=== PATIENT | female | born 1970 | race Caucasian/White ===

== ENCOUNTER → 2016-07-19 | Outpatient (REF) | payer OTHER ==
[2016-07-19 12:15] LABS: ALBUMIN 3.4 GM/DL (3.2-5.2); ALBUMIN/GLOBULIN RATIO 1.36 (1.00-1.93); ALKALINE PHOSPHATASE 66 U/L (45-117); ALT/SGPT 21 U/L (12-78); ANION GAP 9 MEQ/L (8-16); AST/SGOT 11 U/L (15-37); BILIRUBIN,TOTAL 0.2 MG/DL (0.2-1.0); BLOOD UREA NITROGEN 17 MG/DL (7-18); CARBON DIOXIDE LEVEL 24 MEQ/L (21-32); CHLORIDE LEVEL 112 MEQ/L (98-107); CHOLESTEROL LEVEL 182 MG/DL (<200); CREATININE FOR GFR 0.73 MG/DL (0.55-1.02); FREE T4 0.97 NG/DL (0.76-1.46); GLOMERULAR FILTRATION RATE > 60.0 (>58); GLUCOSE, FASTING 101 MG/DL (70-105); POTASSIUM SERUM 3.6 MEQ/L (3.5-5.1); SODIUM LEVEL 145 MEQ/L (136-145); TOTAL PROTEIN 5.9 GM/DL (6.4-8.2); TRIGLYCERIDES LEVEL 74 MG/DL (<150)
== END ==
LOC: M SFHCPLAZ 08:05
PROVIDERS: ATTEND Nurse Practitioner Family
DX: I10 Essential (primary) hypertension (principal); E03.9 Hypothyroidism, unspecified; E11.9 Type 2 diabetes mellitus without complications; E78.2 Mixed hyperlipidemia; E55.9 Vitamin D deficiency, unspecified

== ENCOUNTER → 2016-10-15 | Outpatient (REF) | payer OTHER ==
[2016-10-15 11:51] LABS: ALBUMIN 3.4 GM/DL (3.2-5.2); ALBUMIN/GLOBULIN RATIO 1.26 (1.00-1.93); ALKALINE PHOSPHATASE 70 U/L (45-117); ALT/SGPT 54 U/L (12-78); ANION GAP 7 MEQ/L (8-16); AST/SGOT 34 U/L (15-37); BILIRUBIN,TOTAL 0.4 MG/DL (0.2-1.0); BLOOD UREA NITROGEN 17 MG/DL (7-18); CALCIUM LEVEL 8.4 MG/DL (8.5-10.1); CARBON DIOXIDE LEVEL 24 MEQ/L (21-32); CHLORIDE LEVEL 111 MEQ/L (98-107); CREATININE FOR GFR 0.72 MG/DL (0.55-1.02); FREE T4 0.98 NG/DL (0.76-1.46); GLOMERULAR FILTRATION RATE > 60.0 (>58); GLUCOSE, FASTING 93 MG/DL (70-105); SODIUM LEVEL 142 MEQ/L (136-145); TOTAL PROTEIN 6.1 GM/DL (6.4-8.2)
== END ==
LOC: M SFHCPLAZ 09:24
PROVIDERS: ATTEND Nurse Practitioner Family
DX: E11.9 Type 2 diabetes mellitus without complications (principal); E03.9 Hypothyroidism, unspecified; E55.9 Vitamin D deficiency, unspecified

== ENCOUNTER → 2016-11-20 | Outpatient (CLI) | payer OTHER ==
--- NOTE | 2016-11-20 11:36 | REPMRS ---
Patient History The patient states she had a clinical breast exam in 11/13 Patient is nulliparous. Family history of prostate cancer in maternal uncle at age 50 or over. Digital Woman Screen Mammo: November 20, 2016 - Exam #: [id number] Bilateral MLO, CC, and XCCL view(s) were taken. Technologist: Radha Richard, Technologist Prior study comparison: July 19, 2015, digital woman screen mammo performed at [facility]. February 07, 2014, digital woman screen mammo performed at [facility]. September 19, 2011, digital woman screen mammo performed at [facility]. FINDINGS: The breast tissue is almost entirely fat. There has been no change in the appearance of the mammogram from the prior studies. There is no interval development of dominant mass, architectural distortion, or clustered microcalcification typical of malignancy. ASSESSMENT: BI-RADS/ACR category 1 mammogram. Negative. Recommendation Routine screening mammogram of both breasts in 1 year (for women over age 40). This mammogram was interpreted with the aid of an FDA-approved computer-aided dectection system. Electronically Signed By: Josue Todd MD 11/20/16 [id number]
== END ==
LOC: M WHC 10:09
PROVIDERS: ATTEND Nurse Practitioner Family
DX: Z12.31 Encounter for screening mammogram for malignant neoplasm of breast (principal); E65 Localized adiposity

== ENCOUNTER → 2018-05-18 | Outpatient (REF) | payer OTHER ==
[2018-05-18 12:57] LABS: MALB URINE SIEMENS 64.3 MG/L; MAU/CREAT RATIO 32.4 MCG/MG (0.0-30.0)
[2018-05-18 12:59] LABS: ALBUMIN 3.6 GM/DL (3.2-5.2); ALBUMIN/GLOBULIN RATIO 1.29 (1.00-1.93); ALKALINE PHOSPHATASE 72 U/L (45-117); ALT/SGPT 22 U/L (12-78); ANION GAP 8 MEQ/L (8-16); AST/SGOT 10 U/L (7-37); BILIRUBIN,TOTAL 0.4 MG/DL (0.2-1.0); BLOOD UREA NITROGEN 14 MG/DL (7-18); CALCIUM LEVEL 8.7 MG/DL (8.5-10.1); CARBON DIOXIDE LEVEL 23 MEQ/L (21-32); CHLORIDE LEVEL 112 MEQ/L (98-107); CREATININE FOR GFR 0.75 MG/DL (0.55-1.30); FREE T4 0.99 NG/DL (0.76-1.46); GLOMERULAR FILTRATION RATE > 60.0 (>58); GLUCOSE, FASTING 102 MG/DL (70-100); POTASSIUM SERUM 4.1 MEQ/L (3.5-5.1); SODIUM LEVEL 143 MEQ/L (136-145); TOTAL 25(OH) VITAMIN D 49.6 NG/ML (30.0-100.0); TOTAL PROTEIN 6.4 GM/DL (6.4-8.2)
[2018-05-18 14:00] LABS: ESTIMATED AVERAGE GLUCOSE 114 MG/DL (60-110); HEMOGLOBIN A1c 5.6 %
== END ==
LOC: M SFHCPLAZ 09:23
DX: I10 Essential (primary) hypertension (principal); E03.9 Hypothyroidism, unspecified; E11.9 Type 2 diabetes mellitus without complications; E55.9 Vitamin D deficiency, unspecified
CPT/HCPCS: 84443

== ENCOUNTER → 2019-04-19 | Outpatient (REF) | payer OTHER ==
[2019-04-19 12:41] LABS: ALBUMIN 3.5 GM/DL (3.2-5.2); ALT/SGPT 19 U/L (12-78); BILIRUBIN,TOTAL 0.3 MG/DL (0.2-1.0); BLOOD UREA NITROGEN 16 MG/DL (7-18); CALCIUM LEVEL 8.5 MG/DL (8.5-10.1); CARBON DIOXIDE LEVEL 24 MEQ/L (21-32); CHLORIDE LEVEL 113 MEQ/L (98-107); CHOLESTEROL LEVEL 176 MG/DL (<200); CHOLESTEROL RISK RATIO 2.378 (<5); CREATININE FOR GFR 0.74 MG/DL (0.55-1.30); FREE T4 1.01 NG/DL (0.76-1.46); GLOMERULAR FILTRATION RATE > 60.0 (>58); GLUCOSE, FASTING 102 MG/DL (70-100); HDL CHOLESTEROL 74 MG/DL (>40); LDL CHOLESTEROL 93 MG/DL (<100); NON-HDL-C 102 MG/DL; POTASSIUM SERUM 3.9 MEQ/L (3.5-5.1); SODIUM LEVEL 143 MEQ/L (136-145); TOTAL 25(OH) VITAMIN D 39.6 NG/ML (30.0-100.0); TOTAL PROTEIN 6.3 GM/DL (6.4-8.2); TRIGLYCERIDES LEVEL 43 MG/DL (<150)
[2019-04-19 12:51] LABS: MAU/CREAT RATIO 192.5 MCG/MG (0.0-30.0)
[2019-04-19 12:54] LABS: HEMOGLOBIN A1c 5.1 %
== END ==
LOC: M SFHCPLAZ 09:24
PROVIDERS: ATTEND Nurse Practitioner Family
DX: I10 Essential (primary) hypertension (principal); E03.9 Hypothyroidism, unspecified; E11.9 Type 2 diabetes mellitus without complications; E78.2 Mixed hyperlipidemia; E55.9 Vitamin D deficiency, unspecified

== ENCOUNTER → 2019-10-07 | Outpatient (REF) | payer OTHER ==
[2019-10-07 18:28] LABS: ALBUMIN 3.6 GM/DL (3.2-5.2); ALT/SGPT 21 U/L (12-78); BILIRUBIN,TOTAL 0.3 MG/DL (0.2-1.0); BLOOD UREA NITROGEN 17 MG/DL (7-18); CALCIUM LEVEL 8.8 MG/DL (8.5-10.1); CARBON DIOXIDE LEVEL 23 MEQ/L (21-32); CHLORIDE LEVEL 112 MEQ/L (98-107); CREATININE FOR GFR 0.69 MG/DL (0.55-1.30); FREE T4 0.89 NG/DL (0.76-1.46); GLOMERULAR FILTRATION RATE > 60.0 (>58); GLUCOSE, FASTING 93 MG/DL (70-100); SODIUM LEVEL 142 MEQ/L (136-145); TOTAL PROTEIN 6.5 GM/DL (6.4-8.2)
[2019-10-07 18:29] LABS: HEMOGLOBIN A1c 5.7 %
[2019-10-07 18:50] LABS: CREATININE, URINE 70.9 MG/DL; MALB URINE SIEMENS 44.9 MG/L; MAU/CREAT RATIO 63.3 MCG/MG (0.0-30.0)
== END ==
LOC: M SFHCPLAZ 15:06
PROVIDERS: ATTEND Nurse Practitioner Family
DX: I10 Essential (primary) hypertension (principal); E03.9 Hypothyroidism, unspecified; E11.9 Type 2 diabetes mellitus without complications; R80.9 Proteinuria, unspecified

== ENCOUNTER → 2020-04-27 | Outpatient (REF) | payer OTHER ==
[2020-04-27 13:40] LABS: HEMOGLOBIN A1c 5.6 %
[2020-04-27 14:02] LABS: ALBUMIN 3.5 GM/DL (3.2-5.2); ALT/SGPT 20 U/L (12-78); BILIRUBIN,TOTAL 0.6 MG/DL (0.2-1.0); BLOOD UREA NITROGEN 18 MG/DL (7-18); CALCIUM LEVEL 8.9 MG/DL (8.5-10.1); CARBON DIOXIDE LEVEL 26 MEQ/L (21-32); CHLORIDE LEVEL 110 MEQ/L (98-107); CHOLESTEROL LEVEL 170 MG/DL (<200); CHOLESTEROL RISK RATIO 2.394 (<5); CREATININE FOR GFR 0.77 MG/DL (0.55-1.30); FREE T4 1.01 NG/DL (0.76-1.46); GLOMERULAR FILTRATION RATE > 60.0 (>51); GLUCOSE, FASTING 111 MG/DL (70-100); HDL CHOLESTEROL 71 MG/DL (>40); LDL CHOLESTEROL 88 MG/DL (<100); NON-HDL-C 99 MG/DL; POTASSIUM SERUM 3.9 MEQ/L (3.5-5.1); SODIUM LEVEL 142 MEQ/L (136-145); TOTAL 25(OH) VITAMIN D 50.4 NG/ML (30.0-100.0); TOTAL PROTEIN 6.3 GM/DL (6.4-8.2); TRIGLYCERIDES LEVEL 53 MG/DL (<150)
== END ==
LOC: M SFHCPLAZ 09:15
PROVIDERS: ATTEND Nurse Practitioner Family
DX: I10 Essential (primary) hypertension (principal); E03.9 Hypothyroidism, unspecified; E11.9 Type 2 diabetes mellitus without complications; E78.2 Mixed hyperlipidemia; E55.9 Vitamin D deficiency, unspecified; R80.9 Proteinuria, unspecified

== ENCOUNTER 2020-09-02 16:40 | Inpatient (IN) | payer OTHER ==
[~2020-09-02] VITALS: Ht 152.4 cm; Wt 180.2 kg
[2020-09-02] MEDS ORDERED: METF500T13 PO (17:19)
[2020-09-02] MEDS ORDERED: LEVO25TA5 PO (17:19)
[2020-09-02] MEDS ORDERED: LABE20TAB PO (17:19)
[2020-09-02] MEDS ORDERED: BUPR150T5 PO (17:19)
[2020-09-02] MEDS ORDERED: CALC-364 PO (17:19)
[2020-09-02] MEDS ORDERED: ACET500C10 PO (17:19)
[2020-09-02] MEDS ORDERED: PRAV40TA2 PO (17:19)
[2020-09-02] MEDS ORDERED: VITA50005 PO (17:19)
[2020-09-02] MEDS ORDERED: LATANOPROST (17:19)
[2020-09-02] MEDS ORDERED: LISI10TA22 PO (17:19)
[2020-09-02] MEDS ORDERED: AMLO1TAB25 PO (17:19)
[2020-09-02 17:25] LABS: BASO % 0.5 % (0.0-1.0); EOS # 0.1 10^3/uL (0.0-0.5); EOS % 1.1 % (0.0-3.0); HEMATOCRIT 40.7 % (36.0-47.0); HEMOGLOBIN 11.5 g/dl (12.0-15.5); LYMPH # 0.6 10^3/uL (1.5-5.0); LYMPH % 8.8 % (24.0-44.0); MEAN CORPUSCULAR HEMOGLOBIN 26.7 pg (27.0-33.0); MEAN CORPUSCULAR HGB CONC 28.3 g/dl (32.0-36.5); MEAN CORPUSCULAR VOLUME 94.4 fl (80.0-96.0); MONO # 0.7 10^3/uL (0.0-0.8); MONO % 10.1 % (2.0-8.0); NEUTROPHILS # 5.1 10^3/uL (1.5-8.5); RED BLOOD COUNT 4.31 10^6/uL (4.00-5.40); WHITE BLOOD COUNT 6.5 10^3/uL (4.0-10.0)
--- NOTE | 2020-09-02 17:28 | REP ---
INDICATION: SOB COMPARISON: 11/27/2005 TECHNIQUE: Portable AP view of the chest FINDINGS: Cardiomegaly is appreciated along with cephalization, increased interstitial markings, and subtle basilar opacities most compatible with CHF/pulmonary edema. Layering effusions cannot definitively be excluded. No pneumothorax. Skeletal structures intact. IMPRESSION: Cardiomegaly and findings to suggest CHF/pulmonary edema. <Electronically signed by Duong Redman > 09/02/20 [id number]
[2020-09-02 17:40] LABS: PLATELET COUNT, AUTOMATED 166 10^3/uL (150-450)
[2020-09-02 17:54] LABS: ALT/SGPT 38 U/L (12-78); BLOOD UREA NITROGEN 18 MG/DL (7-18); CALCIUM LEVEL 8.5 MG/DL (8.5-10.1); CARBON DIOXIDE LEVEL 28 MEQ/L (21-32); CHLORIDE LEVEL 111 MEQ/L (98-107); CREATININE FOR GFR 0.84 MG/DL (0.55-1.30); GLOMERULAR FILTRATION RATE > 60.0 (>51); GLUCOSE, FASTING 92 MG/DL (70-100); POTASSIUM SERUM 4.1 MEQ/L (3.5-5.1); SODIUM LEVEL 143 MEQ/L (136-145)
[2020-09-02 17:55] LABS: ALBUMIN 3.3 GM/DL (3.2-5.2); BILIRUBIN,DIRECT 0.2 MG/DL (0.0-0.2); BILIRUBIN,TOTAL 0.4 MG/DL (0.2-1.0); CK-MB VALUE MASS 3.2 NG/ML (<3.6); CPK CREATINE PHOSPHOKINASE 124 U/L (26-192); FREE T4 1.03 NG/DL (0.76-1.46); MB/CK RELATIVE INDEX 2.58 (< OR =4); NT-PRO BNP 627 PG/ML (<125); TOTAL PROTEIN 5.7 GM/DL (6.4-8.2); TROPONIN I < 0.02 NG/ML (< 0.10)
[2020-09-02] MEDS ORDERED: FUROSEMIDE 40MG/4ML VIAL (J1940) IV ONE (18:05)
--- NOTE | 2020-09-02 18:11 | REPVR ---
PROCEDURE INFORMATION: Exam: US Duplex Lower Extremity Veins, Bilateral Exam date and time: 09/02/2020 5:50 PM Age: 50 years old Clinical indication: Swelling (edema) of limb; Lower extremity, bilateral; Additional info: Edema R/O dvt TECHNIQUE: Imaging protocol: Real-time duplex ultrasound of the extremities with 2-D acosta scale, color Doppler flow and spectral waveform analysis with image documentation. Complete exam focused on the bilateral lower extremity veins. COMPARISON: No relevant prior studies available. FINDINGS: Right deep veins: Unremarkable. The common femoral, femoral and popliteal veins are patent without thrombus. Normal Doppler waveforms. Normal compressibility and/or augmentation response. Right superficial veins: Saphenofemoral junction is patent without thrombus. Left deep veins: Unremarkable. The common femoral, femoral and popliteal veins are patent without thrombus. Normal Doppler waveforms. Normal compressibility and/or augmentation response. Left superficial veins: Saphenofemoral junction is patent without thrombus. Soft tissues: Unremarkable. IMPRESSION: No sonographic evidence of deep vein thrombosis. Electronically signed by: Kenny Sanderson On 09/02/2020 18:12:14 PM
[2020-09-02] MEDS ORDERED: XALA0.007 OU (18:21)
[2020-09-02] MEDS ORDERED: DEXTROSE 50% 50 ML SYRINGE IV PRN (19:25)
[2020-09-02] MEDS ORDERED: GLUCOSE 4GM CHEW TABLET PO PRN (19:25)
[2020-09-02] MEDS ORDERED: GLUCAGON INJ 1MG VIAL SC PRN (19:25)
[2020-09-02] MEDS: HumaLOG INSULIN (NovoLOG) PER UNIT SC SCH (21:00)
[2020-09-02] MEDS: LATANOPROST 0.005% OPHTH SOLN 2.5 ML OU SCH (21:00)
[2020-09-02] MEDS: buPROPion **SR TABLET** (ZYBAN) 150MG PO SCH (21:00)
[2020-09-02] MEDS: acetaZOLAMIDE 500 MG ER CAP PO SCH (21:00)
--- NOTE | 2020-09-02 21:06 | HPEPDOC ---
[facility] Medical History & Physical Date of Admission Sep 02, 2020 Date of Service: Sep 02, 2020 History and Physical CHIEF COMPLAINT: Shortness of breath for 2 months, leg swelling, abdominal distention, a 40 pound weight gain HISTORY OF PRESENT ILLNESS: 50-year-old morbidly obese female BMI of 74.1, obstructive sleep apnea compliance with her CPAP, hypertension, diabetes, diastolic congestive heart failure, ejection fraction of 60%, microalbuminemia presents to the emergency room with 2 month history of increasing shortness of breath initially with exertion, but eventually at rest with paroxysmal nocturnal dyspnea and 3 pillow orthopnea at home. She has noted increasing lower extremity edema, abdominal distention and a 40 pound weight gain without changes in appetite. Patient admits to dietary indiscretion and not following a salt restricted diet or fluid restriction. . She denies any chest pain, pressure, tightness, palpitations, diaphoresis, nausea, vomiting, epigastric discomfort, dizziness or lightheadedness. She's had increasing difficulty ambulating due to shortness of breath , especially going one flight of stairs at home. She's had no prior history of DVT or PE in the past. She's had a dry persistent cough and wheezing without fever,chills, or headache, that is not alleviated with her CPAP and has had occasional loose stools once a week for the past 2 months but denies any bright red blood per rectum, melena, black tarry stools, coffee-ground emesis or hematemesis. No prior history of peptic ulcer disease, esophagitis or gastritis. Patient denies taking any medications or inhalers for shortness of breath and has not sought any medical attention prior to coming to the emergency room [place]. In the emergency room patient was found to be hypoxic, 70-80% oxygen saturation on room air, hypertensive with systolic pressure 196 mmHg, 3+ lower extremity edema with Rales bilaterally and chest x-ray showing pulmonary edema, negative venous Dopplers of bilateral lower extremities for DVT. EKG showed sinus rhythm, ventricular rate of 64 with first-degree AV block and troponins are negative. Hemoglobin is 11.5. Hospitalist was asked to admit for the patient for acute hypoxic respiratory failure requiring supplemental oxygen secondary to acute on chronic diastolic congestive heart failure. PAST MEDICAL HISTORY: HTN, DM2, DM retinopathy, microalbuminemia, Dyslipidemia, Obesity BMI 74, Depression, papilledema, vitamin D deficiency, Diastolic CHF , ejection fraction of 60%, obstructive sleep apnea, compliant with CPAP PAST SURGICAL HISTORY: None SOCIAL HISTORY: Denies cigarette use or alcohol use. 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 Healthcare proxy is sister's Binta Gonzalez . CODE STATUS is FULL code. . Denies recreational drug use. Single, no children. FAMILY HISTORY: Father age 45. CAD, [place] Mother alive, hypertension, obesity, gout, diabetes Brother with hypertension 2 sisters with diabetes Maternal uncle prostate cancer and skin cancer Maternal aunt with CVA Maternal aunt, diabetes, CAD, at the age of 65 ALLERGIES: Please see below. REVIEW OF SYSTEMS 10 point review of system is negative aside from positive findings in history of present illness HOME MEDICATIONS: Please see below. PHYSICAL EXAMINATION: VITAL SIGNS: See below GENERAL APPEARANCE: Mild respiratory distress but able to complete 7-8 word sentences. No use of respiratory accessory muscles. No pallor, cyanosis, icterus HEENT: Pupils equally round, reactive to light and accommodation. Extra muscles are intact. Normocephalic, atraumatic, no nasal flaring or tracheal deviation, tongue is midline. No facial asymmetry. No stridor. Positive jugular venous distention, no carotid bruit CARDIOVASCULAR: S1, S2 regular rate rhythm, no carotid bruit. Positive S3. No murmurs noted. Slight right ventricular heave LUNGS: Diminished bilateral Rales air entry is equal. No scoliosis. No tripod positioning. Positive conversational dyspnea but no use of respiratory accessory muscles ABDOMEN: Obese, soft, nontender, nondistended, positive bowel sounds 4 quadrants. No rebound or guarding. No fluid wave. No CVA tenderness EXTREMITIES: 3+ pitting edema to the sacrum. No venous stasis changes. SKIN: Warm, dry, well perfused, pink in color. EKG: Sinus rhythm, ventricular rate of 64, first-degree AV block. LABORATORY DATA: See below. IMAGING: Portable AP view of the chest FINDINGS: Cardiomegaly is appreciated along with cephalization, increased interstitial markings, and subtle basilar opacities most compatible with CHF/pulmonary edema. Layering effusions cannot definitively be excluded. No pneumothorax. Skeletal structures intact. IMPRESSION: Cardiomegaly and findings to suggest CHF/pulmonary edema. <Electronically signed by Duong Redman > 09/02/20 0234 Exam: US Duplex Lower Extremity Veins, Bilateral Exam date and time: 09/02/2020 5:50 PM Age: 50 years old Clinical indication: Swelling (edema) of limb; Lower extremity, bilateral; Additional info: Edema R/O dvt TECHNIQUE: Imaging protocol: Real-time duplex ultrasound of the extremities with 2-D acosta scale, color Doppler flow and spectral waveform analysis with image documentation. Complete exam focused on the bilateral lower extremity veins. COMPARISON: No relevant prior studies available. FINDINGS: Right deep veins: Unremarkable. The common femoral, femoral and popliteal veins are patent without thrombus. Normal Doppler waveforms. Normal compressibility and/or augmentation response. Right superficial veins: Saphenofemoral junction is patent without thrombus. Left deep veins: Unremarkable. The common femoral, femoral and popliteal veins are patent without thrombus. Normal Doppler waveforms. Normal compressibility and/or augmentation response. Left superficial veins: Saphenofemoral junction is patent without thrombus. Soft tissues: Unremarkable. IMPRESSION: No sonographic evidence of deep vein thrombosis. Electronically signed by: Kenny Sanderson On 09/02/2020 18:12:14 PM MICROBIOLOGY: Please see below. ASSESSMENT/PLAN: 50-year-old morbidly obese female BMI of 74.1, obstructive sleep apnea compliance with her CPAP, hypertension, diabetes, diastolic congestive heart failure, ejection fraction of 60%, microalbuminemia presents to the emergency room with 2 month history of increasing shortness of breath initially with exertion, but eventually at rest with paroxysmal nocturnal dyspnea and 3 pillow orthopnea at home. She has noted increasing lower extremity edema, abdominal distention and a 40 pound weight gain without changes in appetite. Patient adm its to dietary indiscretion and not following a salt restricted diet or fluid restriction. . She denies any chest pain, pressure, tightness, palpitations, diaphoresis, nausea, vomiting, epigastric discomfort, dizziness or lightheadedness. She's had increasing difficulty ambulating due to shortness of breath. She's had no prior history of DVT or PE in the past. She's had a dry persistent cough and wheezing that is not alleviated with her CPAP and has had occasional loose stools once a week for the past 2 months but denies any bright red blood per rectum, melena, black tarry stools, coffee-ground emesis or hematemesis. No prior history of peptic ulcer disease, esophagitis or gastritis. In the emergency room patient was found to be hypoxic, 70-80% oxygen saturation on room air, hypertensive with systolic pressure 196 mmHg, 3+ lower extremity edema with Rales bilaterally and chest x-ray showing pulmonary edema, negative venous Dopplers of bilateral lower extremities for DVT. EKG showed sinus rhythm, ventricular rate of 64 with first-degree AV block and troponins are negative. Hemoglobin is 11.5. Hospitalist was asked to admit for the patient for acute hypoxic respiratory failure requiring supplemental oxygen secondary to acute on chronic diastolic congestive heart failure. Acute on chronic Diastolic CHF -Most likely secondary to cor pulmonale and right-sided heart failure due to morbid obesity, BMI of 74.1, with possible chronic obesity hypoventilation syndrome syndrome and obstructive sleep apnea despite being compliant with CPAP. Patient also admits to noncompliance with fluid restriction and salt intake. She'll be admitted to the telemetry unit to rule out arrhythmia as cause of patient's decompensated CHF, cycle cardiac markers to rule out acute coronary syndrome every 6 hourly, repeat 2-dimensional echocardiogram to check progression of pulmonary hypertension and rule out valvular disease. Strict I's and O's, daily weights, 2 L fluid restriction. Parameters will be placed on patient's blood pressure medications to allow enough mean arterial pressure for adequate diuresis with Lasix 40 mg intravenously every 6 hourly which with daily electrolyte monitoring to keep magnesium greater than 2. Potassium greater than 4 at all times to prevent arrhythmias. Acute hypoxic respiratory failure presenting with oxygen saturation of 70% on room air -Titrate oxygen to greater than 90% at all times during the inpatient hospital stay. Continue on her CPAP with her home settings. Treat underlying congestive heart failure with Lasix diuresis, fluid restriction and monitor daily weights. She has no DVT on the bilateral lower extremity Dopplers to suspect pulmonary embolism, with positive pulmonary edema on chest x-ray despite an unimpressive bnp, which is surprising. Htn urgency -Due to her hypoxia caused by congestive heart failure as well as dietary indiscretion with increased salt intake and noncompliance with fluid restriction. Since the patient will be given Lasix every 6 hourly. We will need to monitor her blood pressure before resuming her blood pressure medications and holding parameters will be placed on her normal antihypertensives to prevent h ypotension and hypoperfusion of her kidneys. She currently does not have any acute kidney injury to suspect renal artery stenosis. Therefore, no need for renal ultrasound with Doppler to rule out renal artery stenosis. She has no hypokalemia to suspect primary hyperaldosteronism. Therefore, we will not check plasma renin activity, plasma renin concentration, and aldosterone levels. She denies any history of syncope, palpitations, lightheadedness to suspect pheochromocytoma. With resuming her home blood pressure medications and diuresis, I suspect her blood pressure will normalize. DM2, DM retinopathy, microalbuminemia, -Patient will be resumed on her consistent carbohydrate diet with fingersticks before every meal CHS. Insulin sliding scale with coverage. We will check patient's A1c and titrate her medications for better glycemic control. Due to acute congestive heart failure. We will avoid her oral hypoglycemics until she is euvolemic. Dyslipidemia -Check lipid profile in the morning. Metabolic syndrome -Patient has diabetes, hypertension, hyperlipidemia, obesity with BMI of 74.1, increased abdominal girth. She has multiple cardiac risk factors for coronary artery disease, including above-mentioned diabetes, hypertension, hyperlipidemia. Will titrate medications accordingly to reach glycemic and hypertensive CONTROL. Obesity BMI 74/obesity hypoventilation syndrome/, obstructive sleep apnea, compliant with CPAP -Complicating care. Resume CPAP at home settings Depression -Chronic and stable. No acute suicidal or homicidal ideation papilledema -Resume home meds vitamin D deficiency -Resume medications After hospital discharge Diet: DM 2gram sodium 2liter fluid restriction DVT prophylaxis: compression stockings. , Heparin subcutaneous every 8 hourly Code status: FULL code . Healthcare proxy Binta Maharaj, pt's sister. Vital Signs Vital Signs Date Time Temp Pulse Resp B/P (MAP) Pulse Ox O2 Delivery O2 Flow Rate FiO2 09/02/20 18:25 63 20 98 09/02/20 18:21 Room Air 09/02/20 18:16 150/69 (96) 09/02/20 16:57 4.0 09/02/20 16:56 97.7 Laboratory Data Labs 24H Laboratory Tests 2 09/02/20 17:02: SARS Antigen (LFIA) NEGATIVE 09/02/20 17:03: Influenza A Immunofluorescence NEGATIVE, Influenza B Immunofluorescence NEGATIVE 09/02/20 17:11: Immature Granulocyte % (Auto) 0.5, Neutrophils (%) (Auto) 79.0H, Lymphocytes (%) (Auto) 8.8L, Monocytes (%) (Auto) 10.1H, Eosinophils (%) (Auto) 1.1, Basophils (%) (Auto) 0.5, Neutrophils # (Auto) 5.1, Lymphocytes # (Auto) 0.6L, Monocytes # (Auto) 0.7, Eosinophils # (Auto) 0.1, Basophils # (Auto) 0.0, Nucleated Red Blood Cells % (auto) 0.0, Anion Gap 4L, Glomerular Filtration Rate > 60.0, Calcium Level 8.5, Total Bilirubin 0.4, Direct Bilirubin 0.2, Aspartate Amino Transf (AST/SGOT) 23, Alanine Aminotransferase (ALT/SGPT) 38, Alkaline P hosphatase 69, Total Creatine Kinase 124, Creatine Kinase MB 3.2, Creatine Kinase MB Relative Index 2.58, Troponin I < 0.02, MA-Idi-I-Type Natriuretic Peptide 627H, Total Protein 5.7L, Albumin 3.3, Albumin/Globulin Ratio 1.4, Thyroid Stimulating Hormone (TSH) 4.320H, Free Thyroxine 1.03 CBC/BMP Laboratory Tests 09/02/20 17:11 Microbiology Microbiology 09/02/20 Respiratory Virus Panel (PCR) ([facility]), Received Pending Home Medications Scheduled Acetazolamide (Acetazolamide ER) 500 Mg Capsule.er, 500 MG PO TID Amlodipine Besylate (Amlodipine Besylate) 10 Mg Tablet, 10 MG PO DAILY Bupropion Hcl (Bupropion HCl Sr) 150 Mg Tab.sr.12h, 150 MG PO BID Calcium Carbonate/Vitamin D3 (Calcium 600 mg-Vit D3 5 Mcg Tb) 600 Mg-200 Tablet, 1 TAB PO DAILY Ergocalciferol (Vitamin D2) (Vitamin D2) 50,000 Units Cap, 50,000 UNITS PO Q2WK MONDAYS Labetalol HCl (Labetalol HCl) 200 Mg Tablet, 400 MG PO BID Latanoprost (Xalatan) 0.005% 2.5ML Drops, 1 DROP OU QHS Levothyroxine Sodium (Levothyroxine Sodium) 25 Mcg Tablet, 25 MCG PO DAILY Lisinopril (Lisinopril) 10 Mg Tablet, 10 MG PO DAILY Metformin HCl (Metformin HCl) 500 Mg Tablet, 500 MG PO QPM Pravastatin Sodium (Pravastatin Sodium) 40 Mg Tablet, 40 MG PO DAILY Allergies Coded Allergies: No Known Allergies (Verified , 11/27/05) A-FIB/CHADSVASC A-FIB History Current/History of A-Fib/PAF?: No Current PO Anticoag Therapy: No Age/Risk Factor Scoring CHADSVASC: CHADSVASC Response (Comments) Value Age Risk Factor Age < 65 years old 0 Gender Risk Factor Female 1 Hx of CHF Yes 1 Hx of HTN Yes 1 Hx of Stroke/TIA/or VTE No 0 Hx of Diabetes Yes 1 Hx of Vascular Disease No 0 Total 4 Treatment Treatment ordered: NONE FLORI LAWRENCE MD Sep 02, 2020 19:07
[2020-09-02 23:06] VITALS: BP 170/90
[2020-09-02] MEDS: HEPARIN SOD (PORCINE) 5000UNITS/ML 1ML VIAL/SYRINGE SQ SCH (23:17)
[2020-09-02] MEDS: LABETALOL 200 MG TAB PO SCH (23:18)
[2020-09-03] VITALS (7 sets, daily range): BP systolic 136–163; BP diastolic 61–79; O2SAT 94
[2020-09-03 00:42] LABS: CK-MB VALUE MASS 3.4 NG/ML (<3.6); CPK CREATINE PHOSPHOKINASE 126 U/L (26-192); TROPONIN I < 0.02 NG/ML (< 0.10)
[2020-09-03] MEDS ORDERED: metOLazone 5 MG TAB PO ONE (03:50)
[2020-09-03 04:02] LABS: HEMATOCRIT 42.7 % (36.0-47.0); HEMOGLOBIN 11.9 g/dl (12.0-15.5); MEAN CORPUSCULAR HEMOGLOBIN 26.3 pg (27.0-33.0); MEAN CORPUSCULAR HGB CONC 27.9 g/dl (32.0-36.5); MEAN CORPUSCULAR VOLUME 94.5 fl (80.0-96.0); PLATELET COUNT, AUTOMATED 194 10^3/uL (150-450); RED BLOOD COUNT 4.52 10^6/uL (4.00-5.40); WHITE BLOOD COUNT 6.3 10^3/uL (4.0-10.0)
[2020-09-03] MEDS ORDERED: FUROSEMIDE 40MG/4ML VIAL (J1940) IV SCH ×2 (04:20)
[2020-09-03 04:26] LABS: HEMOGLOBIN A1c 5.7 %
[2020-09-03 04:32] LABS: BLOOD UREA NITROGEN 14 MG/DL (7-18); CALCIUM LEVEL 8.7 MG/DL (8.5-10.1); CARBON DIOXIDE LEVEL 30 MEQ/L (21-32); CHLORIDE LEVEL 108 MEQ/L (98-107); CHOLESTEROL LEVEL 142 MG/DL (<200); CHOLESTEROL RISK RATIO 2.366 (<5); CREATININE FOR GFR 0.87 MG/DL (0.55-1.30); FREE THYROXINE INDEX 2.9 % (1.3-4.8); GLOMERULAR FILTRATION RATE > 60.0 (>51); GLUCOSE, FASTING 93 MG/DL (70-100); HDL CHOLESTEROL 60 MG/DL (>40); LDL CHOLESTEROL 62 MG/DL (<100); MAGNESIUM LEVEL 1.7 MG/DL (1.8-2.4); NON-HDL-C 82 MG/DL; POTASSIUM SERUM 3.7 MEQ/L (3.5-5.1); SODIUM LEVEL 144 MEQ/L (136-145); T UPTAKE 33 % (30-39); THYROXINE (T4) 8.8 UG/DL (4.5-12.0); TRIGLYCERIDES LEVEL 98 MG/DL (<150)
[2020-09-03 04:33] LABS: CK-MB VALUE MASS 3.4 NG/ML (<3.6); CPK CREATINE PHOSPHOKINASE 129 U/L (26-192); MB/CK RELATIVE INDEX 2.64 (< OR =4)
[2020-09-03 04:34] LABS: TROPONIN I < 0.02 NG/ML (< 0.10)
[2020-09-03] MEDS: HEPARIN SOD (PORCINE) 5000UNITS/ML 1ML VIAL/SYRINGE SQ SCH ×3 (05:32→21:33)
[2020-09-03] MEDS: LEVOTHYROXINE 25MCG TABLET (0.025MG) PO SCH (05:32)
--- NOTE | 2020-09-03 06:30 | ECGEPIP ---
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
[2020-09-03] MEDS: HumaLOG INSULIN (NovoLOG) PER UNIT SC SCH ×4 (07:30→20:26)
[2020-09-03] MEDS: FUROSEMIDE 40MG/4ML VIAL (J1940) IV SCH ×3 (08:13→15:44)
[2020-09-03] MEDS: buPROPion **SR TABLET** (ZYBAN) 150MG PO SCH ×2 (08:13→20:35)
[2020-09-03] MEDS: LABETALOL 200 MG TAB PO SCH ×2 (08:14→20:36)
[2020-09-03] MEDS: acetaZOLAMIDE 500 MG ER CAP PO SCH ×3 (08:14→20:36)
[2020-09-03] MEDS: PRAVASTATIN 20 MG TAB PO SCH (08:15)
[2020-09-03] MEDS: POTASSIUM CHLORIDE 10 MEQ SR TABLET PO SCH ×2 (08:15→20:35)
--- NOTE | 2020-09-03 10:09 | IPNPDOC ---
Text Note Date of Service The patient was seen on 09/03/20. NOTE Subjective: Patient seen and examined at bedside. No acute overnight events reported. Patient has no new medical complaints this morning. She states she is feeling much better today. Objective: General: NAD, sitting comfortably in chair HEENT: NC/AT, EOMI Lungs: diminished breath sounds Heart: +S1S2, RRR Abd: soft, obese, NT, +BS Ext: b/l LE 2+ pitting edema ASSESSMENT/PLAN: 50-year-old morbidly obese female BMI of 74.1, GLORIA/CPAP, HTN, DM, HFpEF, presents for 2 months worsening SOB/CHRISTIANSEN/PND, 3 pillow orthopnea, worsening LE edema, abdominal distention and a 40 pound weight gain. Patient admits to dietary indiscretion and not following a salt restricted diet or fluid restriction. Admitted for acute hypoxic respiratory failure requiring supplemental oxygen secondary to acute on chronic diastolic congestive heart failure. #Acute/chronic HFpEF - likely secondary to cor pulmonale and right-sided heart failure due to morbid obesity - BMI of 74.1 - patient also admits to dietary indiscretion - I/Os, daily weights, IV lasix - telemetry monitoring - card markers negative - echocardiogram #Acute hypoxic respiratory failure - as above - further complicated with GLORIA/CPAP and likely OHS - use home cpap while inpatient - titrate O2 #Htn urgency - resolved #DM2 - consistent carbohydrate diet with fingersticks before every meal qhs - insulin sliding scale #Dyslipidemia -Check lipid profile in the morning. #Metabolic syndrome #Obesity BMI 74 -Complicating care #Depression #papilledema -Resume home meds Diet: DM 2gram sodium 2liter fluid restriction DVT prophylaxis: compression stockings. , Heparin subcutaneous every 8 hourly Code status: FULL code . Healthcare proxy Binta Maharaj, pt's sister. VS,Fishbone, I+O VS, Fishbone, I+O Laboratory Tests 09/02/20 17:11 09/03/20 03:48 Vital Signs Date Time Temp Pulse Resp B/P (MAP) Pulse Ox O2 Delivery O2 Flow Rate FiO2 09/03/20 08:14 64 138/65 09/03/20 07:30 98.5 18 98 Room Air 09/03/20 04:36 6.0 I&O- Last 24 Hours up to 6 AM 09/03/20 06:00 Intake Total 540 ml Output Total 800 ml Balance -260 ml AMINTA MANUEL MD Sep 03, 2020 10:09
[2020-09-03] MEDS ORDERED: MAG SULF 1GM/100ML (MAG RUN) 1 GM in IV 1 EA IV ONE (10:30)
[2020-09-03] MEDS: LATANOPROST 0.005% OPHTH SOLN 2.5 ML OU SCH (20:35)
[2020-09-04] VITALS: BP 131/58
[2020-09-04 04:00] VITALS: BP 135/64
[2020-09-04 05:11] LABS: HEMATOCRIT 38.5 % (36.0-47.0); HEMOGLOBIN 10.7 g/dl (12.0-15.5); MEAN CORPUSCULAR HEMOGLOBIN 26.6 pg (27.0-33.0); MEAN CORPUSCULAR HGB CONC 27.8 g/dl (32.0-36.5); MEAN CORPUSCULAR VOLUME 95.5 fl (80.0-96.0); PLATELET COUNT, AUTOMATED 198 10^3/uL (150-450); RED BLOOD COUNT 4.03 10^6/uL (4.00-5.40)
[2020-09-04 05:23] LABS: BLOOD UREA NITROGEN 13 MG/DL (7-18); CALCIUM LEVEL 7.9 MG/DL (8.5-10.1); CARBON DIOXIDE LEVEL 35 MEQ/L (21-32); CHLORIDE LEVEL 105 MEQ/L (98-107); CREATININE FOR GFR 0.88 MG/DL (0.55-1.30); GLOMERULAR FILTRATION RATE > 60.0 (>51); GLUCOSE, FASTING 116 MG/DL (70-100); MAGNESIUM LEVEL 1.9 MG/DL (1.8-2.4); POTASSIUM SERUM 3.2 MEQ/L (3.5-5.1); SODIUM LEVEL 142 MEQ/L (136-145)
[2020-09-04] MEDS: LEVOTHYROXINE 25MCG TABLET (0.025MG) PO SCH (06:12)
[2020-09-04] MEDS: HEPARIN SOD (PORCINE) 5000UNITS/ML 1ML VIAL/SYRINGE SQ SCH ×3 (06:13→21:28)
[2020-09-04] MEDS ORDERED: POTASSIUM CHLORIDE 10% LIQ 20 MEQ/15 ML UDC PO ONE (07:30)
[2020-09-04 08:00] VITALS: BP 133/60
[2020-09-04] MEDS: PRAVASTATIN 20 MG TAB PO SCH (08:16)
[2020-09-04] MEDS: buPROPion **SR TABLET** (ZYBAN) 150MG PO SCH ×2 (08:16→21:26)
[2020-09-04] MEDS: acetaZOLAMIDE 500 MG ER CAP PO SCH ×3 (08:16→21:26)
[2020-09-04] MEDS: POTASSIUM CHLORIDE 10 MEQ SR TABLET PO SCH ×2 (08:18→21:27)
[2020-09-04] MEDS: LABETALOL 200 MG TAB PO SCH ×2 (08:18→21:26)
[2020-09-04] MEDS: HumaLOG INSULIN (NovoLOG) PER UNIT SC SCH ×4 (08:20→21:00)
[2020-09-04] MEDS: FUROSEMIDE 40MG/4ML VIAL (J1940) IV SCH ×3 (08:20→21:27)
[2020-09-04 12:00] VITALS: BP 144/64
--- NOTE | 2020-09-04 13:41 | IPNPDOC ---
Subjective Date Seen The patient was seen on 09/04/20. Subjective Chief Complaint/HPI Subjective: Pt states she's breathing better and less fluids in her lower extremities but still a good amount in the abdominal region. Denies any CP, abdominal pain, n/v/d. No acute events reported by nursing overnight. K+ 3.2 this am due to diureses and acetazolamide - repleted with 1x dose 40 KCL and continue her standing order of 20 KCL BID. Objective: Vital signs: See below General: NAD, sitting comfortably in chair HEENT: NC/AT, EOMI Lungs: diminished breath sounds, no crackles wheezing appreciated Heart: +S1S2, RRR, no m/g/r Abd: soft, obese, NT, +BS Ext: b/l LE 2+ pitting edema on R and trace on L ASSESSMENT/PLAN: This is a 50-year-old morbidly obese female with past medical history of GLORIA/CPAP, HTN, DM, HFpEF, who presents to [facility] with worsening SOB/CHRISTIANSEN/PND, 3 pillow orthopnea, worsening LE edema, abdominal distention and a 40 pound weight gain. She states all this started about 2 months ago. Patient admits to dietary indiscretion and not following a salt restricted diet or fluid restriction. Admitted for acute hypoxic respiratory failure requiring supplemental oxygen secondary to acute on chronic diastolic congestive heart failure. #Acute on chronic HFpEF - likely secondary to cor pulmonale and right-sided heart failure due to morbid obesity - BMI of 74.1 - patient also admits to dietary indiscretion - I/Os, daily weights, IV lasix - telemetry monitoring - card markers negative - echocardiogram pending-to evaluate for urinary hypertension #Hypokalemia -Potassium 3.2 liklely due to diuresis with Lasix and Acetasol in mind for presumptive diagnosis of pseudotumor cerebri - Continue scheduled dose of KCl 20 mg twice a day; repleted with a one-time dose of 40 KCl this morning - We'll continue to monitor her BMP closely and replete electrolyte abnormalities as needed #Acute hypoxic respiratory failure -We secondary to GLORIA/OHS - Patient is compliant with CPAP at night- currently on 6 L of nasal cannula, satting at 94% - Oxygen titration to above 90% #Htn urgency -Resolved. Blood pressure this morning and 135/64 -Current blood pressure regimen of amlodipine, lisinopril, labetalol #DM2 - Continue with consistent carb diet with fingerstick checks before every meal/daily at bedtime - insulin sliding scale with lispro #Dyslipidemia -Continue pravastatin #Metabolic syndrome #Obesity BMI 74 -Complicating care #papilledema/Pseudotumor cerebri -Continue home meds Acetazolamide Diet: Asst. carb diet and 2 g sodium diet Fluids: 2 L fluid or section GI ppx: none DVT prophylaxis: Heparin every 8 H and SCDs Code status: FULL code. Healthcare proxy Binta Maharaj, pt's sister. Assessment /Plan Plan/VTE VTE Prophylaxis Ordered?: Yes VS, I&O, 24H, Fishbone Vital Signs/I&O Vital Signs Date Time Temp Pulse Resp B/P (MAP) Pulse Ox O2 Delivery O2 Flow Rate FiO2 09/04/20 08:18 70 133/60 09/04/20 08:00 6.0 09/04/20 08:00 98.2 22 94 Nasal Cannula I&O- Last 24 Hours up to 6 AM 09/04/20 05:59 Intake Total 1050 ml Output Total 4845 ml Balance -3795 ml Laboratory Data 24H LABS Laboratory Tests 2 09/03/20 11:28: Bedside Glucose (Misc Panel) 125H 09/03/20 17:28: Bedside Glucose (Misc Panel) 94 09/03/20 19:44: Bedside Glucose (Misc Panel) 106H 09/04/20 04:41: Nucleated Red Blood Cells % (auto) 0.0, Anion Gap 2L, Glomerular Filtration Rate > 60.0, Calcium Level 7.9L, Magnesium Level 1.9 CBC/BMP Laboratory Tests 09/04/20 04:41 Microbiology Microbiology 09/02/20 Respiratory Virus Panel (PCR) (JERE) - Final, Complete GME ATTESTATION GME ATTESTATION My faculty preceptor for this patient encounter was physically present during the encounter and was fully available. All aspects of the patient interview, examination, medical decision making process, and medical care plan development were reviewed and approved by the faculty preceptor. The faculty preceptor is aware and concurs with the plan as stated in the body of this note and will attest to such by his/her cosignature. ATTENDING NOTE Attending Note: Patient seen and examined independently. Agree with resident's note and plan of care. Chaparrita Quispe DO Sep 04, 2020 10:04 AMINTA MANUEL MD Sep 04, 2020 18:38
[2020-09-04 16:00] VITALS: BP 138/65
[2020-09-04 20:00] VITALS: BP 141/64
[2020-09-04] MEDS: LATANOPROST 0.005% OPHTH SOLN 2.5 ML OU SCH (21:27)
[2020-09-05] VITALS: BP 130/62
[2020-09-05] MEDS ORDERED: EPINEPHrine INJ 1 MG/ML 1ML AMP IM PRN
[2020-09-05] MEDS ORDERED: diphenhydrAMINE 50MG/ML VIAL (J1200) IM PRN
[2020-09-05] MEDS: FUROSEMIDE 40MG/4ML VIAL (J1940) IV SCH ×4 (03:57→20:51)
[2020-09-05 04:00] VITALS: BP 133/60
[2020-09-05 05:07] LABS: HEMATOCRIT 39.8 % (36.0-47.0); MEAN CORPUSCULAR HGB CONC 27.6 g/dl (32.0-36.5); MEAN CORPUSCULAR VOLUME 94.1 fl (80.0-96.0); PLATELET COUNT, AUTOMATED 192 10^3/uL (150-450); RED BLOOD COUNT 4.23 10^6/uL (4.00-5.40); WHITE BLOOD COUNT 6.8 10^3/uL (4.0-10.0)
[2020-09-05] MEDS: HEPARIN SOD (PORCINE) 5000UNITS/ML 1ML VIAL/SYRINGE SQ SCH ×3 (05:31→21:03)
[2020-09-05] MEDS: LEVOTHYROXINE 25MCG TABLET (0.025MG) PO SCH (05:31)
[2020-09-05 05:35] LABS: BLOOD UREA NITROGEN 10 MG/DL (7-18); CARBON DIOXIDE LEVEL 41 MEQ/L (21-32); CHLORIDE LEVEL 98 MEQ/L (98-107); CREATININE FOR GFR 0.78 MG/DL (0.55-1.30); GLOMERULAR FILTRATION RATE > 60.0 (>51); GLUCOSE, FASTING 118 MG/DL (70-100); MAGNESIUM LEVEL 1.8 MG/DL (1.8-2.4); POTASSIUM SERUM 2.9 MEQ/L (3.5-5.1); SODIUM LEVEL 142 MEQ/L (136-145)
[2020-09-05] MEDS ORDERED: POTASSIUM CHLORIDE 10 MEQ SR TABLET PO SCH (06:00)
[2020-09-05] MEDS: HumaLOG INSULIN (NovoLOG) PER UNIT SC SCH ×4 (07:30→21:00)
[2020-09-05 08:00] VITALS: BP 104/66
[2020-09-05] MEDS: buPROPion **SR TABLET** (ZYBAN) 150MG PO SCH ×2 (08:34→21:03)
[2020-09-05] MEDS: PRAVASTATIN 20 MG TAB PO SCH (08:34)
[2020-09-05] MEDS: acetaZOLAMIDE 500 MG ER CAP PO SCH ×3 (08:34→21:03)
[2020-09-05] MEDS: LABETALOL 200 MG TAB PO SCH ×2 (08:35→21:04)
[2020-09-05] MEDS ORDERED: POTASSIUM CHLORIDE 10 MEQ SR TABLET PO ONE (09:00)
[2020-09-05 12:00] VITALS: BP 140/69
--- NOTE | 2020-09-05 13:34 | IPNPDOC ---
Date Seen The patient was seen on 09/05/20. Progress Note SUBJECTIVE: Neg fluid balance 4.8 L/24 hrs. PT/OT ordered, replacing potassium. No increased SOB, chest pain, fevers chills. OBJECTIVE: PHYSICAL EXAMINATION: VS: please see below General: NAD, sitting comfortably in chair HEENT: NC/AT, EOMI intact Neck: Large diameter, no JVD Lungs: diminished breath sounds, no crackles or wheezing appreciated Heart: +S1S2, RRR, no m/g/r Abd: soft, obese, NT, +BS Ext: b/l LE 2+ pitting edema b/l lower ext NEURO: CN 2-12 intact, no sensory or motor loss PSYCH: mood and affect appropriate ASSESSMENT: 50-year-old morbidly obese female with PMH of GLORIA/CPAP, HTN, DM, HFpEF, who presents to [facility] with worsening SOB/CHRISTIANSEN/PND admitted for acute hypoxic res piratory failure requiring supplemental oxygen secondary to acute on chronic diastolic congestive heart failure. PLAN: Acute hypoxic respiratory failure 2/2 to GLORIA/OHS and acute on chronic HFpEF -Patient is compliant with CPAP at night- currently on 3-6 L of nasal cannula -Oxygen titration to above 90% -C/w treatment of individual issues below Acute on chronic HFpEF likely secondary to cor pulmonale and right-sided heart failure due to morbid obesity -Neg 4.8 L/24 hrs with diuresis, decreased lower ext swelling -Remains on 3 L NC, does not use home O2 normally. CPAP nightly -C/w I/Os, daily weights, low salt diet -C/w BB, CCB, lasix IV, ACEi -Echocardiogram pending Hypokalemia, acute and likely 2/2 to diuresis -K 2.9 despite increased potassium supplement -Supplementing a total of 90 mEq KCl today -Started on 30 mEq BID plus whatever else is needed daily -Daily labs Obstructive sleep apnea/ obesity hypoventilation syndrome. -C/w supplemental O2, CPAP nightly -Wt loss encouraged, to f/u with PCP HTN -Stable -C/w amlodipine, lisinopril, labetalol, lasix DM2 -BS stable -C/w consistent carb diet with fingerstick checks before every meal/daily at bedtime, ISS Dyslipidemia -C/w pravastatin Metabolic syndrome -Obesity BMI 74 -Complicating care Papilledema/Pseudotumor cerebri -Continue home meds Acetazolamide DVT prophylaxis: Heparin every 8 H and SCDs DISPOSITION: Acute inpatient status. Continuing with diuresis, weaning off O2. PT/OT consulted to see. Plan is hopeful for discharge home when medically improved. VS, I&O, 24H, Fishbone Vital Signs/I&O Vital Signs Date Time Temp Pulse Resp B/P (MAP) Pulse Ox O2 Delivery O2 Flow Rate FiO2 09/05/20 12:00 3.0 09/05/20 08:34 60 127/60 09/05/20 08:00 98.7 18 95 High Flow Cannula I&O- Last 24 Hours up to 6 AM 09/05/20 06:00 Intake Total 960 ml Output Total 6950 ml Balance -5990 ml Laboratory Data 24H LABS Laboratory Tests 2 09/04/20 17:01: Bedside Glucose (Misc Panel) 100 09/04/20 21:25: Bedside Glucose (Misc Panel) 133H 09/05/20 04:44: Nucleated Red Blood Cells % (auto) 0.0, Anion Gap 3L, Glomerular Filtration Rate > 60.0, Calcium Level 8.0L, Magnesium Level 1.8 09/05/20 07:31: Bedside Glucose (Misc Panel) 106H 09/05/20 11:58: Bedside Glucose (Misc Panel) 99 CBC/BMP Laboratory Tests 09/05/20 04:44 Microbiology Microbiology 09/02/20 Respiratory Virus Panel (PCR) (JERE) - Final, Complete Current Medications Current Medications Medications (Trade) Dose Ordered Sig/Heidy Route PRN Reason Start Time Stop Time Status Last Admin Dose Admin Acetazolamide (Diamox Sequels) 500 mg TID PO 09/02/20 21:00 09/05/20 08:34 Amlodipine Besylate (Norvasc) 10 mg DAILY PO 09/03/20 09:00 09/03/20 03:45 DC Amlodipine Besylate (Norvasc) 10 mg DAILY PO 09/04/20 09:00 Bupropion HCl (Zyban, Wellbutrin Sr) 150 mg BID PO 09/02/20 21:00 09/05/20 08:34 Dextrose (Dextrose 50%) 25 ml ASDIRECTED PRN IV SEE LABEL COMMENTS 09/02/20 19:25 Furosemide (LASIX injection) 40 mg Q4H IV 09/03/20 04:00 09/03/20 16:08 DC 09/03/20 08:13 Furosemide (LASIX injection) 40 mg Q4H IV 09/03/20 04:20 09/03/20 05:01 DC 09/03/20 04:46 Furosemide (LASIX injection) 40 mg Q6H IV 09/03/20 00:00 09/03/20 03:46 DC 09/02/20 23:17 Furosemide (LASIX injection) 40 mg Q6H IV 09/04/20 09:00 09/05/20 09:49 Glucagon (Glucagon) 1 mg ASDIRECTED PRN SC SEE LABEL COMMENTS 09/02/20 19:25 Glucose (Glucose) 16 GM ASDIRECTED PRN PO SEE LABEL COMMENTS 09/02/20 19:25 Heparin Sodium (Porcine) (Heparin) 7,500 units Q8H SQ 09/02/20 22:00 09/05/20 05:31 Home Med (Med Rec Complete!) ASDIRECTED XX 09/02/20 18:55 09/02/20 18:55 DC Insulin Human Lispro (HumaLOG INSULIN) SEE PROTOCOL TABLE AC SC 09/03/20 07:30 09/04/20 08:20 Insulin Human Lispro (HumaLOG INSULIN) SEE PROTOCOL TABLE QHS SC 09/02/20 21:00 Labetalol HCl (Normodyne, Trandate) 400 mg BID PO 09/02/20 21:00 09/04/20 21:26 Latanoprost (Xalatan 0.005% Op Soln) 1 drop QHS OU 09/02/20 21:00 09/04/20 21:27 Levothyroxine Sodium (Synthroid) 25 mcg DAILY@0600 PO 09/03/20 06:00 09/05/20 05:31 Lisinopril (Prinivil) 10 mg DAILY PO 09/03/20 09:00 09/04/20 08:16 Potassium Chloride (Micro-K Extencaps) 20 meq BID PO 09/03/20 09:00 09/05/20 05:43 DC 09/04/20 21:27 Potassium Chloride (Micro-K Extencaps) 30 meq BID PO 09/05/20 21:00 Potassium Chloride (Micro-K Extencaps) 40 meq Q4H PO 09/05/20 06:00 09/05/20 07:41 DC 09/05/20 06:07 Pravastatin Sodium (Pravachol) 40 mg DAILY PO 09/03/20 09:00 09/05/20 08:34 Allergies Coded Allergies: No Known Allergies (Verified , 11/27/05) Giselle Lewis MD Sep 05, 2020 13:34
[2020-09-05] MEDS: ACETAMINOPHEN TAB 650MG DOSE (2X325MG) PO PRN (14:09)
[2020-09-05 16:00] VITALS: BP 137/64
[2020-09-05] MEDS ORDERED: COVID-19 VAC,AD26(JANSSEN)/PF 0.5ML SYRINGE (EUA) IM ONE (17:00)
[2020-09-05 20:00] VITALS: BP 160/72
[2020-09-05] MEDS: POTASSIUM CHLORIDE 10 MEQ SR TABLET PO SCH (21:03)
[2020-09-05] MEDS: LATANOPROST 0.005% OPHTH SOLN 2.5 ML OU SCH (21:03)
[2020-09-06] VITALS (19 sets, daily range): BP systolic 118–143; BP diastolic 56–70; O2SAT 88–96
[2020-09-06] MEDS ORDERED: POTASSIUM CHLORIDE 10 MEQ SR TABLET PO ONE
[2020-09-06] MEDS: ACETAMINOPHEN TAB 650MG DOSE (2X325MG) PO PRN (03:46)
[2020-09-06] MEDS: LEVOTHYROXINE 25MCG TABLET (0.025MG) PO SCH (05:36)
[2020-09-06] MEDS: HEPARIN SOD (PORCINE) 5000UNITS/ML 1ML VIAL/SYRINGE SQ SCH (05:36)
[2020-09-06 05:44] LABS: HEMATOCRIT 39.8 % (36.0-47.0); HEMOGLOBIN 11.3 g/dl (12.0-15.5); MEAN CORPUSCULAR HEMOGLOBIN 26.8 pg (27.0-33.0); MEAN CORPUSCULAR HGB CONC 28.4 g/dl (32.0-36.5); MEAN CORPUSCULAR VOLUME 94.5 fl (80.0-96.0); PLATELET COUNT, AUTOMATED 182 10^3/uL (150-450); RED BLOOD COUNT 4.21 10^6/uL (4.00-5.40); WHITE BLOOD COUNT 5.5 10^3/uL (4.0-10.0)
[2020-09-06] MEDS ORDERED: FUROSEMIDE 40MG/4ML VIAL (J1940) IV SCH (06:00)
[2020-09-06 06:08] LABS: BLOOD UREA NITROGEN 11 MG/DL (7-18); CALCIUM LEVEL 8.2 MG/DL (8.5-10.1); CARBON DIOXIDE LEVEL 44 MEQ/L (21-32); CHLORIDE LEVEL 97 MEQ/L (98-107); CREATININE FOR GFR 0.75 MG/DL (0.55-1.30); GLOMERULAR FILTRATION RATE > 60.0 (>51); GLUCOSE, FASTING 112 MG/DL (70-100); POTASSIUM SERUM 3.2 MEQ/L (3.5-5.1); SODIUM LEVEL 142 MEQ/L (136-145)
[2020-09-06] MEDS: HumaLOG INSULIN (NovoLOG) PER UNIT SC SCH ×4 (07:30→20:43)
[2020-09-06] MEDS: FUROSEMIDE 40MG/4ML VIAL (J1940) IV SCH (08:14)
[2020-09-06] MEDS: PRAVASTATIN 20 MG TAB PO SCH (08:15)
[2020-09-06] MEDS: acetaZOLAMIDE 500 MG ER CAP PO SCH ×3 (08:15→20:41)
[2020-09-06] MEDS: buPROPion **SR TABLET** (ZYBAN) 150MG PO SCH ×2 (08:15→20:41)
[2020-09-06] MEDS: LABETALOL 200 MG TAB PO SCH ×2 (08:15→20:42)
[2020-09-06] MEDS: POTASSIUM CHLORIDE 10 MEQ SR TABLET PO SCH ×2 (08:16→20:42)
[2020-09-06 08:27] LABS: PHOSPHORUS LEVEL 3.8 MG/DL (2.5-4.9)
[2020-09-06] MEDS ORDERED: FUROSEMIDE 100MG/10ML VIAL (J1940) IV SCH (09:00)
--- NOTE | 2020-09-06 10:08 | ECGEPIP ---
[facility] Test Date: 2020-09-06 Pat Name: ALDO QUINTERO Department: Room: [place] [address] Gender: Female [employer] Supervisor: RIN : 1970 Requested By: Giselle Guevara Order Number: [id number] Reading MD: Sybil Rodarte Measurements Intervals [place] Rate: 67 P: 19 GA: 192 QRS: 27 QRSD: 120 T: 29 QT: 426 QTc: 450 Interpretive Statements Normal sinus rhythm COPD PATTERN MORE PROMINENT WITH DEEP S WAVES LATERALLY PRIOR WITH 1ST DEGREE BLOCK //IMPROVED VOLTAGE// IMPROVED R WAVE PROGRESSION C/W 09/02/20 NONSPECIFIC STT ABN PERSISTS Electronically Signed on 09-06-2020 10:07:56 EST by Sybil Rodarte
--- NOTE | 2020-09-06 10:21 | ECHO ---
DATE OF PROCEDURE: 09/03/2020 Age: 50 Gender: Female Height: 60 inches Weight: 379 pounds Body Surface Area: 2.45 m2 PATIENT LOCATION: Inpatient PCU, Room 3215. REFERRING PHYSICIAN: Shalini Ramos MD. INDICATION: CHF. MEASUREMENTS: 2D Measurements: RV 5.6 cm LV 6.2 cm Septum 1.3 cm Posterior wall 1.3 cm Aortic Root 3.4 cm LA 4.8 cm LVEF 65% Doppler Measurements: AV 1.78 m/s LVOT 1.45 m/s MV E 144, A 108, E/A ratio 1.3 Early mitral deceleration time 190 msec E prime medial 7.5, A prime medial 11.5, E prime lateral 10.3 Average E/E prime ratio 16.2/PCWP 22 mmHg PV 1.3 m/s Pulmonary artery acceleration time 100 msec RVSP: Difficult to estimate precisely but in excess of 50 mmHg IVC 2.8 cm COMMENTS: Normal sinus rhythm without intraventricular conduction disturbance. Technically difficult study in light of the patient's body habitus, but some diagnostically useful information was still obtained. M-mode and 2-dimensional echocardiography was performed with pulse, continuous wave, color flow, and tissue Doppler studies. Moderately dilated left ventricle with mild symmetrical hypertrophy but paradoxical septal motion and flattening suspected to be related to a right ventricular pressure overload. Other left ventricular wall segments were normal with retained global resting systolic function. Moderately dilated left atrium with grade 2 LV diastolic dysfunction and elevated estimated mean left atrial pressure. Prominently dilated right heart chambers with adequate right ventricular free wall motion and suspected at least moderately severe to severe pulmonary hypertension. Prominently dilated IVC with reduced to virtually absent respiratory collapse in keeping with elevated central venous pressure/right heart failure. Normal aortic dimensions. Normal appearing and functioning valvular structures. Unable to detect any intracardiac mass or pericardial effusion. MTDD
--- NOTE | 2020-09-06 11:47 | ECGEPIP ---
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
--- NOTE | 2020-09-06 11:58 | ECGEPIP ---
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
[2020-09-06] MEDS: APIXABAN 5 MG TAB (ELIQUIS) PO SCH ×2 (12:39→20:41)
--- NOTE | 2020-09-06 12:41 | IPNPDOC ---
Date Seen The patient was seen on 09/06/20. Progress Note SUBJECTIVE: Neg fluid balance 3.8 L/24 H. Paroxysmal atrial fib on tele, PVCs. Echo done on 09/02/20 but report is pending. PT recommending continued services. Replaced K. Decreased lasix today. Denies chest pain, increased shortness of breath, fevers, chills. OBJECTIVE: PHYSICAL EXAMINATION: VS: please see below General: NAD, sitting comfortably in chair HEENT: NC/AT, EOMI intact Neck: Large diameter, no JVD Lungs: diminished breath sounds b/l lung hussein , no crackles or wheezing appre ciated Heart: +S1S2, RRR, no m/g/r Abd: soft, obese, NT, +BS Ext: b/l LE 2+ pitting edema b/l lower ext NEURO: CN 2-12 intact, no sensory or motor loss PSYCH: mood and affect appropriate ASSESSMENT: 50-year-old morbidly obese female with PMH of GLORIA/CPAP, HTN, DM, HFpEF, who presents to [facility] with worsening SOB/CHRISTIANSEN/PND admitted for acute hypoxic respiratory failure requiring supplemental oxygen secondary to acute on chronic diastolic congestive heart failure. PLAN: Acute hypoxic respiratory failure 2/2 to GLORIA/OHS and acute on chronic HFpEF -Patient is compliant with CPAP at night- currently on 3 L of nasal cannula -Oxygen titration to above 88-90% -C/w treatment of individual issues below Acute on chronic HFpEF likely secondary to cor pulmonale and right-sided heart failure due to morbid obesity -Neg 3.8 L/24 hrs with diuresis, decreased lower ext swelling -Remains on 3 L NC, does not use home O2 normally. CPAP nightly -C/w I/Os, daily weights, low salt diet -C/w BB, CCB, lasix IV decreased, ACEi -Echocardiogram report pending Paroxysmal atrial fibrillation -ECG showed atrial fib, NSR in and out on tele during the day -HR controlled, started on eliquis BID -Lytes replaced, mag and phos wnl -F/u report of echocardiogram -Will discuss with cardiology team when have all the information Hypokalemia, acute and likely 2/2 to diuresis -K 3.2 -C/w KCl 30 mEq BID p -Daily labs Obstructive sleep apnea/ obesity hypoventilation syndrome. -C/w supplemental O2, CPAP nightly -Wt loss encouraged, to f/u with PCP HTN -Stable -C/w amlodipine, lisinopril, labetalol, lasix DM2 -BS stable -C/w consistent carb diet with fingerstick checks before every meal/daily at be dtime, ISS Dyslipidemia -C/w pravastatin Metabolic syndrome -Obesity BMI 74 -Complicating care Papilledema/Pseudotumor cerebri -Continue home meds Acetazolamide DVT prophylaxis: Heparin every 8 H and SCDs DISPOSITION: Acute inpatient status. decreased diuresis, PT/OT suggesting continued rehab. VS, I&O, 24H, Fishbone Vital Signs/I&O Vital Signs Date Time Temp Pulse Resp B/P (MAP) Pulse Ox O2 Delivery O2 Flow Rate FiO2 09/06/20 12:01 97.1 62 18 131/59 (83) 93 High Flow Cannula 3.0 I&O- Last 24 Hours up to 6 AM 09/06/20 06:00 Intake Total 540 ml Output Total 3500 ml Balance -2960 ml Laboratory Data 24H LABS Laboratory Tests 2 09/05/20 17:37: Bedside Glucose (Misc Panel) 98 09/05/20 21:02: Bedside Glucose (Misc Panel) 113H 09/05/20 23:56: Whole Blood Ionized Calcium 4.5, Phosphorus Level 3.3, Magnesium Level 1.8 09/06/20 04:51: Phosphorus Level 3.8, Magnesium Level 2.0, Nucleated Red Blood Cells % (auto) 0.0, Anion Gap 1L, Glomerular Filtration Rate > 60.0, Calcium Level 8.2L 09/06/20 11:06: Bedside Glucose (Misc Panel) 97 CBC/BMP Laboratory Tests 09/05/20 21:10 09/06/20 04:51 Microbiology Microbiology 09/02/20 Respiratory Virus Panel (PCR) (JERE) - Final, Complete Current Medications Current Medications Medications (Trade) Dose Ordered Sig/Heidy Route PRN Reason Start Time Stop Time Status Last Admin Dose Admin Acetaminophen (Tylenol Tab) 650 mg Q6HP PRN PO PAIN / FEVER 09/05/20 13:55 09/06/20 03:46 Acetazolamide (Diamox Sequels) 500 mg TID PO 09/02/20 21:00 09/06/20 08:15 Amlodipine Besylate (Norvasc) 10 mg DAILY PO 09/03/20 09:00 09/03/20 03:45 DC Amlodipine Besylate (Norvasc) 10 mg DAILY PO 09/04/20 09:00 Apixaban (Eliquis) 5 mg BID PO 09/06/20 21:00 UNV Bupropion HCl (Zyban, Wellbutrin Sr) 150 mg BID PO 09/02/20 21:00 09/06/20 08:15 Dextrose (Dextrose 50%) 25 ml ASDIRECTED PRN IV SEE LABEL COMMENTS 09/02/20 19:25 Diphenhydramine HCl (Benadryl) 50 mg ASDIRECTED PRN IM ANAPHYLAXIS 09/05/20 00:00 09/05/20 23:59 DC Epinephrine HCl (Adrenalin) 0.3 mg ASDIRECTED PRN IM ANAPHYLAXIS 09/05/20 00:00 09/05/20 23:59 DC Furosemide (LASIX injection) 20 mg Q6H IV 09/06/20 06:00 09/06/20 07:51 DC 09/06/20 05:36 Furosemide (LASIX injection) 40 mg DAILY IV 09/06/20 09:00 09/06/20 08:14 Furosemide (LASIX injection) 40 mg Q4H IV 09/03/20 04:00 09/03/20 16:08 DC 09/03/20 08:13 Furosemide (LASIX injection) 40 mg Q4H IV 09/03/20 04:20 09/03/20 05:01 DC 09/03/20 04:46 Furosemide (LASIX injection) 40 mg Q6H IV 09/03/20 00:00 09/03/20 03:46 DC 09/02/20 23:17 Furosemide (LASIX injection) 40 mg Q6H IV 09/04/20 09:00 09/06/20 03:34 DC 09/05/20 15:47 Furosemide (LASIX injection) 60 mg DAILY IV 09/06/20 09:00 09/06/20 07:52 DC Glucagon (Glucagon) 1 mg ASDIRECTED PRN SC SEE LABEL COMMENTS 09/02/20 19:25 Glucose (Glucose) 16 GM ASDIRECTED PRN PO SEE LABEL COMMENTS 09/02/20 19:25 Heparin Sodium (Porcine) (Heparin) 7,500 units Q8H SQ 09/02/20 22:00 09/06/20 12:23 DC 09/06/20 05:36 Home Med (Med Rec Complete!) ASDIRECTED XX 09/02/20 18:55 09/02/20 18:55 DC Insulin Human Lispro (HumaLOG INSULIN) SEE PROTOCOL TABLE AC SC 09/03/20 07:30 09/04/20 08:20 Insulin Human Lispro (HumaLOG INSULIN) SEE PROTOCOL TABLE QHS SC 09/02/20 21:00 Labetalol HCl (Normodyne, Trandate) 400 mg BID PO 09/02/20 21:00 09/06/20 08:15 Latanoprost (Xalatan 0.005% Op Soln) 1 drop QHS OU 09/02/20 21:00 09/05/20 21:03 Levothyroxine Sodium (Synthroid) 25 mcg DAILY@0600 PO 09/03/20 06:00 09/06/20 05:36 Lisinopril (Prinivil) 10 mg DAILY PO 09/03/20 09:00 09/06/20 08:16 Potassium Chloride (Micro-K Extencaps) 20 meq BID PO 09/03/20 09:00 09/05/20 05:43 DC 09/04/20 21:27 Potassium Chloride (Micro-K Extencaps) 30 meq BID PO 09/05/20 21:00 09/06/20 08:16 Potassium Chloride (Micro-K Extencaps) 40 meq Q4H PO 09/05/20 06:00 09/05/20 07:41 DC 09/05/20 06:07 Pravastatin Sodium (Pravachol) 40 mg DAILY PO 09/03/20 09:00 09/06/20 08:15 Allergies Coded Allergies: No Known Allergies (Verified , 11/27/05) Giselle Lewis MD Sep 06, 2020 12:41
[2020-09-06] MEDS: LATANOPROST 0.005% OPHTH SOLN 2.5 ML OU SCH (20:43)
[2020-09-07] VITALS (20 sets, daily range): BP systolic 140–164; BP diastolic 64–74; O2SAT 89–100
[2020-09-07] MEDS: LEVOTHYROXINE 25MCG TABLET (0.025MG) PO SCH (05:04)
[2020-09-07 06:23] LABS: HEMATOCRIT 39.7 % (36.0-47.0); HEMOGLOBIN 11.1 g/dl (12.0-15.5); MEAN CORPUSCULAR VOLUME 96.6 fl (80.0-96.0); PLATELET COUNT, AUTOMATED 158 10^3/uL (150-450); RED BLOOD COUNT 4.11 10^6/uL (4.00-5.40); WHITE BLOOD COUNT 3.9 10^3/uL (4.0-10.0)
[2020-09-07 06:40] LABS: BLOOD UREA NITROGEN 9 MG/DL (7-18); CALCIUM LEVEL 8.4 MG/DL (8.5-10.1); CARBON DIOXIDE LEVEL 42 MEQ/L (21-32); CHLORIDE LEVEL 100 MEQ/L (98-107); CREATININE FOR GFR 0.64 MG/DL (0.55-1.30); GLOMERULAR FILTRATION RATE > 60.0 (>51); GLUCOSE, FASTING 94 MG/DL (70-100); MAGNESIUM LEVEL 2.1 MG/DL (1.8-2.4); POTASSIUM SERUM 3.4 MEQ/L (3.5-5.1); SODIUM LEVEL 142 MEQ/L (136-145)
[2020-09-07] MEDS: HumaLOG INSULIN (NovoLOG) PER UNIT SC SCH ×4 (07:00→19:47)
[2020-09-07] MEDS: LABETALOL 200 MG TAB PO SCH ×2 (07:56→20:05)
[2020-09-07] MEDS: acetaZOLAMIDE 500 MG ER CAP PO SCH ×3 (08:20→20:05)
[2020-09-07] MEDS: FUROSEMIDE 40MG/4ML VIAL (J1940) IV SCH (08:20)
[2020-09-07] MEDS: POTASSIUM CHLORIDE 10 MEQ SR TABLET PO SCH (08:21)
[2020-09-07] MEDS: buPROPion **SR TABLET** (ZYBAN) 150MG PO SCH ×2 (08:21→20:05)
[2020-09-07] MEDS: APIXABAN 5 MG TAB (ELIQUIS) PO SCH ×2 (08:21→20:05)
[2020-09-07] MEDS: PRAVASTATIN 20 MG TAB PO SCH (08:21)
[2020-09-07] MEDS ORDERED: FUROSEMIDE 20MG/2ML VIAL (J1940) IV ONE (15:15)
--- NOTE | 2020-09-07 15:18 | IPNPDOC ---
Date Seen The patient was seen on 09/07/20. Progress Note SUBJECTIVE: Discussed at great length with cardiology and pulmonary. Severe pulmonary HTN on echo, likely 2/2 to GLORIA, OHS and morbid obesity. Will likely need home O2 at rest and activity, nocturnal oximetry test to be done tonight with cpap in place to see if needs during the evening. PT cleared for home. Denies chest pain, increased shortness of breath, fevers, chills. OBJECTIVE: PHYSICAL EXAMINATION: VS: please see below General: NAD, sitting comfortably in chair HEENT: NC/AT, EOMI intact Neck: Large diameter, no JVD Lungs: diminished breath sounds b/l lung hussein , no crackles or wheezing appreciated Heart: +S1S2, RRR, no m/g/r Abd: soft, obese, NT, +BS Ext: b/l LE 1+ pitting edema b/l lower ext, slightly increased compared to 09/06/20 NEURO: CN 2-12 intact, no sensory or motor loss PSYCH: mood and affect appropriate IMAGING: Echocardiogram: EF 65% Normal sinus rhythm without intraventricular conduction disturbance. Technically difficult study in light of the patient's body habitus, but some diagnostically useful information was still obtained. M-mode and 2-dimensional echocardiography was performed with pulse, continuous wave, color flow, and tissue Doppler studies. Moderately dilated left ventricle with mild symmetrical hypertrophy but paradoxical septal motion and flattening suspected to be related to a right ventricular pressure overload. Other left ventricular wall segments were normal with retained global resting systolic function. Moderately dilated left atrium with grade 2 LV diastolic dysfunction and elevated estimated mean left atrial pressure. Prominently dilated right heart chambers with adequate right ventricular free wall motion and suspected at least moderately severe to severe pulmonary hypertension. Prominently dilated IVC with reduced to virtually absent respiratory collapse inkeeping with elevated central venous pressure/right heart failure. Normal aortic dimensions. Normal appearing and functioning valvular structures. Unable to detect any intracardiac mass or pericardial effusion. ASSESSMENT: 50-year-old morbidly obese female with PMH of GLORIA/CPAP, HTN, DM, HFpEF, who presents to [facility] with worsening SOB/CHRISTIANSEN/PND admitted for acute hypoxic respiratory failure requiring supplemental oxygen secondary to acute on chronic diastolic congestive heart failure. PLAN: Acute hypoxic respiratory failure 2/2 to GLORIA/OHS and acute on chronic HFpEF -Patient is compliant with CPAP at night- currently on 3 L of nasal cannula. -Oxygen titration to above 88-90% -C/w treatment of individual issues below Acute on chronic HFpEF likely secondary to cor pulmonale and right-sided heart failure due to morbid obesity -Neg 920 mL/24 hrs with diuresis, decreased lower ext swelling -Remains on 3 L NC, does not use home O2 normally. CPAP nightly -C/w I/Os, daily weights, low salt diet -C/w BB, CCB, lasix IV , ACEi -Echocardiogram report above -Can be referred to cardiology as o/p. Discussed with Dr. Ortiz this admission who thinks this is likely largely due to uncontrolled weight, GLORIA and OHS. Paroxysmal atrial fibrillation possibly 2/2 to CM, structural heart issues -ECG showed atrial fib, NSR in and out on tele during the day -HR controlled -Lytes replaced, mag and phos wnl -Echo above -Discussed with cardiology, recommended c/w eliquis BID. Patient in agreement to continue. Obstructive sleep apnea/ obesity hypoventilation syndrome -Nocturnal oximetry test to be done tonight with CPAP per pulmonary -C/w supplemental O2, CPAP nightly -O2 testing at rest and activity to be done today to send home with O2 -Wt loss encouraged, to f/u with PCP Severe pulmonary HTN likely 2/2 to morbid obesity, uncontrolled GLORIA, OHS -C/w treatment above -F/u with pulmonary as o/p Hypokalemia, acute and likely 2/2 to diuresis -K 3.4 -Supplement KCl rome -Daily labs HTN -Stable -C/w amlodipine, lisinopril, labetalol, lasix DM2 -BS stable -C/w consistent carb diet with fingerstick checks before every meal/daily at bedtime, ISS Dyslipidemia -C/w pravastatin Metabolic syndrome -Obesity BMI 74 -Complicating care Papilledema/Pseudotumor cerebri -Continue home meds Acetazolamide DVT prophylaxis: Heparin, SCDs DISPOSITION: Acute inpatient status. PT cleared for home. Plan is hopefully home with home O2 if needed on 09/08/20. VS, I&O, 24H, Fishbone Vital Signs/I&O Vital Signs Date Time Temp Pulse Resp B/P (MAP) Pulse Ox O2 Delivery O2 Flow Rate FiO2 09/07/20 14:00 89 Nasal Cannula 3.0 09/07/20 12:00 97.5 64 18 152/70 (97) I&O- Last 24 Hours up to 6 AM 09/07/20 06:00 Intake Total 1440 ml Output Total 1900 ml Balance -460 ml Laboratory Data 24H LABS Laboratory Tests 2 09/06/20 16:05: Bedside Glucose (Misc Panel) 101 09/06/20 19:46: Bedside Glucose (Misc Panel) 107H 09/07/20 05:00: Nucleated Red Blood Cells % (auto) 0.0, Anion Gap 0L, Glomerular Filtration Rate > 60.0, Calcium Level 8.4L, Magnesium Level 2.1 09/07/20 11:00: Bedside Glucose (Misc Panel) 87 CBC/BMP Laboratory Tests 09/07/20 05:00 Microbiology Microbiology 09/02/20 Respiratory Virus Panel (PCR) ([facility]) - Final, Complete Current Medications Current Medications Medications (Trade) Dose Ordered Sig/Heidy Route PRN Reason Start Time Stop Time Status Last Admin Dose Admin Acetaminophen (Tylenol Tab) 650 mg Q6HP PRN PO PAIN / FEVER 09/05/20 13:55 09/06/20 03:46 Acetazolamide (Diamox Sequels) 500 mg TID PO 09/02/20 21:00 09/07/20 08:20 Amlodipine Besylate (Norvasc) 10 mg DAILY PO 09/03/20 09:00 09/03/20 03:45 DC Amlodipine Besylate (Norvasc) 10 mg DAILY PO 09/04/20 09:00 09/07/20 08:21 Apixaban (Eliquis) 5 mg BID PO 09/06/20 12:30 09/07/20 08:21 Bupropion HCl (Zyban, Wellbutrin Sr) 150 mg BID PO 09/02/20 21:00 09/07/20 08:21 Dextrose (Dextrose 50%) 25 ml ASDIRECTED PRN IV SEE LABEL COMMENTS 09/02/20 19:25 Diphenhydramine HCl (Benadryl) 50 mg ASDIRECTED PRN IM ANAPHYLAXIS 09/05/20 00:00 09/05/20 23:59 DC Epinephrine HCl (Adrenalin) 0.3 mg ASDIRECTED PRN IM ANAPHYLAXIS 09/05/20 00:00 09/05/20 23:59 DC Furosemide (LASIX injection) 20 mg Q6H IV 09/06/20 06:00 09/06/20 07:51 DC 09/06/20 05:36 Furosemide (LASIX injection) 40 mg DAILY IV 09/06/20 09:00 09/07/20 08:20 Furosemide (LASIX injection) 40 mg Q4H IV 09/03/20 04:00 09/03/20 16:08 DC 09/03/20 08:13 Furosemide (LASIX injection) 40 mg Q4H IV 09/03/20 04:20 09/03/20 05:01 DC 09/03/20 04:46 Furosemide (LASIX injection) 40 mg Q6H IV 09/03/20 00:00 09/03/20 03:46 DC 09/02/20 23:17 Furosemide (LASIX injection) 40 mg Q6H IV 09/04/20 09:00 09/06/20 03:34 DC 09/05/20 15:47 Furosemide (LASIX injection) 60 mg DAILY IV 09/06/20 09:00 09/06/20 07:52 DC Glucagon (Glucagon) 1 mg ASDIRECTED PRN SC SEE LABEL COMMENTS 09/02/20 19:25 Glucose (Glucose) 16 GM ASDIRECTED PRN PO SEE LABEL COMMENTS 09/02/20 19:25 Heparin Sodium (Porcine) (Heparin) 7,500 units Q8H SQ 09/02/20 22:00 09/06/20 12:23 DC 09/06/20 05:36 Home Med (Med Rec Complete!) ASDIRECTED XX 09/02/20 18:55 09/02/20 18:55 DC Insulin Human Lispro (HumaLOG INSULIN) SEE PROTOCOL TABLE AC SC 09/03/20 07:30 09/04/20 08:20 Insulin Human Lispro (HumaLOG INSULIN) SEE PROTOCOL TABLE QHS SC 09/02/20 21:00 Labetalol HCl (Normodyne, Trandate) 400 mg BID PO 09/02/20 21:00 09/06/20 20:42 Latanoprost (Xalatan 0.005% Op Soln) 1 drop QHS OU 09/02/20 21:00 09/06/20 20:43 Levothyroxine Sodium (Synthroid) 25 mcg DAILY@0600 PO 09/03/20 06:00 09/07/20 05:04 Lisinopril (Prinivil) 10 mg DAILY PO 09/03/20 09:00 09/07/20 08:21 Potassium Chloride (Micro-K Extencaps) 20 meq BID PO 09/03/20 09:00 09/05/20 05:43 DC 09/04/20 21:27 Potassium Chloride (Micro-K Extencaps) 30 meq BID PO 09/05/20 21:00 09/07/20 07:57 DC 09/06/20 20:42 Potassium Chloride (Micro-K Extencaps) 40 meq DAILY PO 09/07/20 09:00 09/07/20 08:21 Potassium Chloride (Micro-K Extencaps) 40 meq Q4H PO 09/05/20 06:00 09/05/20 07:41 DC 09/05/20 06:07 Pravastatin Sodium (Pravachol) 40 mg DAILY PO 09/03/20 09:00 09/07/20 08:21 Allergies Coded Allergies: No Known Allergies (Verified , 11/27/05) Giselle Lewis MD Sep 07, 2020 15:18
[2020-09-07] MEDS: ACETAMINOPHEN TAB 650MG DOSE (2X325MG) PO PRN (20:05)
[2020-09-07] MEDS: LATANOPROST 0.005% OPHTH SOLN 2.5 ML OU SCH (21:10)
[2020-09-08] VITALS (7 sets, daily range): BP systolic 134–159; BP diastolic 53–78; O2SAT 93–95
[2020-09-08] MEDS: LEVOTHYROXINE 25MCG TABLET (0.025MG) PO SCH (05:20)
[2020-09-08 05:37] LABS: HEMATOCRIT 38.9 % (36.0-47.0); HEMOGLOBIN 10.9 g/dl (12.0-15.5); MEAN CORPUSCULAR HEMOGLOBIN 26.7 pg (27.0-33.0); MEAN CORPUSCULAR VOLUME 95.1 fl (80.0-96.0); PLATELET COUNT, AUTOMATED 155 10^3/uL (150-450); RED BLOOD COUNT 4.09 10^6/uL (4.00-5.40); WHITE BLOOD COUNT 3.3 10^3/uL (4.0-10.0)
[2020-09-08 05:47] LABS: BLOOD UREA NITROGEN 12 MG/DL (7-18); CALCIUM LEVEL 8.3 MG/DL (8.5-10.1); CARBON DIOXIDE LEVEL 40 MEQ/L (21-32); CHLORIDE LEVEL 102 MEQ/L (98-107); GLOMERULAR FILTRATION RATE > 60.0 (>51); GLUCOSE, FASTING 93 MG/DL (70-100); POTASSIUM SERUM 3.3 MEQ/L (3.5-5.1); SODIUM LEVEL 143 MEQ/L (136-145)
[2020-09-08] MEDS: HumaLOG INSULIN (NovoLOG) PER UNIT SC SCH ×3 (07:30→16:33)
[2020-09-08] MEDS ORDERED: FURO40TA2 PO (07:57)
[2020-09-08] MEDS ORDERED: POTA1TAB14 PO (07:57)
[2020-09-08] MEDS ORDERED: ELIQ5TAB PO (07:57)
[2020-09-08] MEDS: LABETALOL 200 MG TAB PO SCH (08:19)
[2020-09-08] MEDS: PRAVASTATIN 20 MG TAB PO SCH (08:19)
[2020-09-08] MEDS: acetaZOLAMIDE 500 MG ER CAP PO SCH ×2 (08:20→16:33)
[2020-09-08] MEDS: buPROPion **SR TABLET** (ZYBAN) 150MG PO SCH (08:20)
[2020-09-08] MEDS: POTASSIUM CHLORIDE 10 MEQ SR TABLET PO SCH (08:20)
[2020-09-08] MEDS: APIXABAN 5 MG TAB (ELIQUIS) PO SCH (08:20)
[2020-09-08] MEDS: FUROSEMIDE 40MG/4ML VIAL (J1940) IV SCH (08:21)
--- NOTE | 2020-09-08 13:17 | DS.PDOC ---
Discharge Summary General Date of Admission Sep 02, 2020 at 19:02 Date of Discharge 09/08/20 Attending Physician: Giselle Lewis MD Discharge Summary HISTORY OF PRESENT ILLNESS: 50-year-old morbidly obese female BMI of 74.1, obstructive sleep apnea compliance with her CPAP, hypertension, diabetes, diastolic congestive heart failure, ejection fraction of 60%, microalbuminemia presents to the emergency room with 2 month history of increasing shortness of breath initially with exer tion, but eventually at rest with paroxysmal nocturnal dyspnea and 3 pillow orthopnea at home. She has noted increasing lower extremity edema, abdominal distention and a 40 pound weight gain without changes in appetite. Patient admits to dietary indiscretion and not following a salt restricted diet or fluid restriction. . She denies any chest pain, pressure, tightness, palpitations, diaphoresis, nausea, vomiting, epigastric discomfort, dizziness or lightheadedness. She's had increasing difficulty ambulating due to shortness of breath , especially going one flight of stairs at home. She's had no prior history of DVT or PE in the past. She's had a dry persistent cough and wheezing without fever,chills, or headache, that is not alleviated with her CPAP and has had occasional loose stools once a week for the past 2 months but denies any bright red blood per rectum, melena, black tarry stools, coffee-ground emesis or hematemesis. No prior history of peptic ulcer disease, esophagitis or gastritis. Patient denies taking any medications or inhalers for shortness of breath and has not sought any medical attention prior to coming to the emergency room today. In the emergency room patient was found to be hypoxic, 70-80% oxygen saturation on room air, hypertensive with systolic pressure 196 mmHg, 3+ lower extremity edema with Rales bilaterally and chest x-ray showing pulmonary edema, negative venous Dopplers of bilateral lower extremities for DVT. EKG showed sinus rhythm, ventricular rate of 64 with first-degree AV block and troponins are negative. Hemoglobin is 11.5. Hospitalist was asked to admit for the patient for acute hypoxic respiratory failure requiring supplemental oxygen secondary to acute on chronic diastolic congestive heart failure. HOSPITAL COURSE: Patient's acute hypoxic respiratory failure 2/2 to GLORIA/OHS and acute on chronic HFpEF. She states to be compliant with CPAP at night, was found to need 3 L NC at night also. Nocturnal oximetry done and will be reviewed further with pulmonary at discharge. Currently saturating well on 3 L of nasal cannula ATC. Acute on chronic HFpEF likely secondary to cor pulmonale and right-sided heart failure due to morbid obesity. She was in neg fluid balance most days of admission, had decreased LE swelling and some improvement of SOB. C/w BB, CCB, lasix , ACEi after discharge. Echocardiogram report below, patient can be referred to cardiology as o/p. Discussed with Dr. Ortiz this admission who thinks this is likely largely due to uncontrolled weight, GLORIA and OHS. New onset paroxysmal atrial fibrillation possibly 2/2 to CM, structural heart issues. ECG showed atrial fib, NSR in and out on tele during the day, HR controlled. Lytes replaced, mag and phos wnl. Also discussed with cardiology, recommended c/w eliquis BID. Patient in agreement to continue. For obstructive sleep apnea/ obesity hypoventilation syndrome, nocturnal oximetry test done. Following up with o/p pulmonary after discharge. She has severe pulmonary HTN likely 2/2 to morbid obesity, uncontrolled GLORIA, OHS. Wt loss is important to help improve her current prognosis and condition, she should discuss with her PCP current options. On 09/08/20 she continued to remain stable. She was discharged home with O2, f/u in place. She denied any acute complaints. PAST MEDICAL HISTORY: HTN, DM2, DM retinopathy, microalbuminemia, Dyslipidemia, Obesity BMI 74, Depression, papilledema, vitamin D deficiency, Diastolic CHF , ejection fraction of 60%, obstructive sleep apnea, compliant with CPAP PAST SURGICAL HISTORY: None SOCIAL HISTORY: Denies cigarette use or alcohol use. Works in [employer]. Healthcare proxy is sister's Binta Gonzalez . CODE STATUS is FULL code. . Denies recreational drug use. Single, no children. FAMILY HISTORY: Father age 45. CAD, MS Mother alive, hypertension, obesity, gout, diabetes Brother with hypertension 2 sisters with diabetes Maternal uncle prostate cancer and skin cancer Maternal aunt with CVA Maternal aunt, diabetes, CAD, at the age of 65 DISCHARGE MEDICATIONS: Please see below PHYSICAL EXAMINATION: VS: please see below General: NAD, sitting comfortably in chair HEENT: NC/AT, EOMI intact Neck: Large diameter, no JVD Lungs: diminished breath sounds b/l lung hussein , no crackles or wheezing appreciated Heart: +S1S2, RRR, no m/g/r Abd: soft, obese, NT, +BS Ext: b/l LE 1+ pitting edema b/l lower ext, slightly increased compared to 09/06/20 NEURO: CN 2-12 intact, no sensory or motor loss PSYCH: mood and affect appropriate IMAGING: Echocardiogram: EF 65% Normal sinus rhythm without intraventricular conduction disturbance. Technically difficult study in light of the patient's body habitus, but some diagnostically useful information was still obtained. M-mode and 2-dimensional echocardiography was performed with pulse, continuous wave, color flow, and tissue Doppler studies. Moderately dilated left ventricle with mild symmetrical hypertrophy but paradoxical septal motion and flattening suspected to be related to a right ventricular pressure overload. Other left ventricular wall segments were normal with retained global resting systolic function. Moderately dilated left atrium with grade 2 LV diastolic dysfunction and elevated estimated mean left atrial pressure. Prominently dilated right heart chambers with adequate right ventricular free wall motion and suspected at least moderately severe to severe pulmonary hypertension. Prominently dilated IVC with reduced to virtually absent respiratory collapse inkeeping with elevated central venous pressure/right heart failure. Normal aortic dimensions. Normal appearing and functioning valvular structures. Unable to detect any intracardiac mass or pericardial effusion. ASSESSMENT: 50-year-old morbidly obese female with PMH of GLORIA/CPAP, HTN, DM, HFpEF, who presents to [facility] with worsening SOB/CHRISTIANSEN/PND admitted for acute hypoxic respiratory failure requiring supplemental oxygen secondary to acute on chronic diastolic congestive heart failure. PLAN: Acute hypoxic respiratory failure 2/2 to GLORIA/OHS and acute on chronic HFpEF -Patient is compliant with CPAP at night- currently on 3 L of nasal cannula. -Oxygen titration to above 88-90% -C/w treatment of individual issues below Acute on chronic HFpEF likely secondary to cor pulmonale and right-sided heart failure due to morbid obesity -Neg 920 mL/24 hrs with diuresis, decreased lower ext swelling -Remains on 3 L NC ATC , including at night -C/w BB, CCB, lasix , ACEi after discharge -Echocardiogram report above -Can be referred to cardiology as o/p. Discussed with Dr. Ortiz this admission who thinks this is likely largely due to uncontrolled weight, GLORIA and OHS. Paroxysmal atrial fibrillation possibly 2/2 to CM, structural heart issues -ECG showed atrial fib, NSR in and out on tele during the day -HR controlled -Lytes replaced, mag and phos wnl -Echo above -Discussed with cardiology, recommended c/w eliquis BID. Patient in agreement to continue. Obstructive sleep apnea/ obesity hypoventilation syndrome -Nocturnal oximetry test done -C/w supplemental O2, CPAP nightly -O2 testing at rest and activity done and patient to go home with ATC O2 -Wt loss encouraged -To f/u with pulmonary after discharge to review nocturnal oximetry which showed she required O2 nightly Severe pulmonary HTN likely 2/2 to morbid obesity, uncontrolled GLORIA, OHS -C/w treatment above -F/u with pulmonary as o/p Hypokalemia, acute and likely 2/2 to diuresis -K 3.4 -Supplement KCl daily after discharge -Daily labs HTN -Stable -C/w amlodipine, lisinopril, labetalol, lasix DM2 -BS stable -C/w consistent carb diet with fingerstick checks before every meal/daily at bedtim Dyslipidemia -C/w pravastatin Morbid obesity/ Metabolic syndrome -Obesity BMI 74 -Complicating care -Encouraged to follow up with PCP to discuss wt loss options Papilledema/Pseudotumor cerebri -Continue home meds Acetazolamide DISPOSITION: D/c home today to f/u with PCP, pulmonary after discharge. TIME SPENT ON DISCHARGE: 35 minutes. Vital Signs/I&Os Vital Signs Date Time Temp Pulse Resp B/P (MAP) Pulse Ox O2 Delivery O2 Flow Rate FiO2 09/08/20 12:00 97.5 58 22 159/78 (105) 96 NIPPV (BIPAP/CPAP) 2.0 I&O- Last 24 Hours up to 6 AM 09/08/20 05:59 Intake Total 240 ml Output Total 2800 ml Balance -2560 ml Laboratory Data Labs 24H Laboratory Tests 2 09/07/20 16:05: Bedside Glucose (Misc Panel) 110H 09/07/20 19:43: Bedside Glucose (Misc Panel) 116H 09/08/20 04:54: Nucleated Red Blood Cells % (auto) 0.0, Anion Gap 1L, Glomerular Filtration Rate > 60.0, Calcium Level 8.3L, Magnesium Level 2.0 09/08/20 11:51: Bedside Glucose (Misc Panel) 86 CBC/BMP Laboratory Tests 09/08/20 04:54 FSBS Laboratory Tests Test 09/07/20 16:05 09/07/20 19:43 09/08/20 11:51 Range/Units Bedside Glucose (Misc Panel) 110 116 86 70-105 MG/DL Microbiology Microbiology 09/02/20 Respiratory Virus Panel (PCR) ([facility]) - Final, Complete Discharge Medications Scheduled Acetazolamide (Acetazolamide ER) 500 Mg Capsule.er, 500 MG PO TID, (Reported) Amlodipine Besylate (Amlodipine Besylate) 10 Mg Tablet, 10 MG PO DAILY, (Reported) Apixaban (Eliquis) 5 Mg Tablet, 5 MG PO BID Bupropion Hcl (Bupropion HCl Sr) 150 Mg Tab.sr.12h, 150 MG PO BID, (Reported) Calcium Carbonate/Vitamin D3 (Calcium 600 mg-Vit D3 5 Mcg Tb) 600 Mg-200 Tablet, 1 TAB PO DAILY, (Reported) Ergocalciferol (Vitamin D2) (Vitamin D2) 50,000 Units Cap, 50,000 UNITS PO Q2WK, (Reported) MONDAYS Furosemide (Furosemide) 40 Mg Tablet, 40 MG PO DAILY Labetalol HCl (Labetalol HCl) 200 Mg Tablet, 400 MG PO BID, (Reported) Latanoprost (Xalatan) 0.005% 2.5ML Drops, 1 DROP OU QHS, (Reported) Levothyroxine Sodium (Levothyroxine Sodium) 25 Mcg Tablet, 25 MCG PO DAILY, (Reported) Lisinopril (Lisinopril) 10 Mg Tablet, 10 MG PO DAILY, (Reported) Metformin HCl (Metformin HCl) 500 Mg Tablet, 500 MG PO QPM, (Reported) Potassium Chloride (Potassium Chloride) 20 Meq Tablet.er, 40 MEQ PO DAILY Pravastatin Sodium (Pravastatin Sodium) 40 Mg Tablet, 40 MG PO DAILY, (Reported) Allergies Coded Allergies: No Known Allergies (Verified , 11/27/05) Giselle Lewis MD Sep 08, 2020 13:17
== END 2020-09-08 17:15 | disposition home health service (06) | DRG 194 ==
LOC: EDBD 16:40 → M ED 16:40 → M ED INP 19:02 → ENRESERV 19:43 → M PCU 22:59
PROVIDERS: ADMIT General Practice; ATTEND Internal Medicine
DX: I11.0 Hypertensive heart disease with heart failure (principal); J96.01 Acute respiratory failure with hypoxia; I27.89 Other specified pulmonary heart diseases; E88.81 Metabolic syndrome and other insulin resistance; E66.2 Morbid (severe) obesity with alveolar hypoventilation; Z68.45 Body mass index [BMI] 70 or greater, adult; G93.2 Benign intracranial hypertension; I48.0 Paroxysmal atrial fibrillation; E11.319 Type 2 diabetes mellitus with unspecified diabetic retinopathy without macular edema; E87.6 Hypokalemia; I50.33 Acute on chronic diastolic (congestive) heart failure; I16.0 Hypertensive urgency; F32.9 Major depressive disorder, single episode, unspecified; Z79.84 Long term (current) use of oral hypoglycemic drugs; Z79.899 Other long term (current) drug therapy

== ENCOUNTER → 2020-09-14 | Outpatient (REF) | payer OTHER ==
[~2020-09-14] MED LIST: ACET500C10 PO; AMLO1TAB25 PO; BUPR150T5 PO; CALC-364 PO; ELIQ5TAB PO; FURO40TA2 PO; LABE20TAB PO; LATANOPROST; LEVO25TA5 PO; LISI10TA22 PO; METF500T13 PO; POTA1TAB14 PO; PRAV40TA2 PO; VITA50005 PO; XALA0.007 OU
[2020-09-14 12:39] LABS: ALBUMIN 3.7 GM/DL (3.2-5.2); BLOOD UREA NITROGEN 23 MG/DL (7-18); CALCIUM LEVEL 9.1 MG/DL (8.5-10.1); CARBON DIOXIDE LEVEL 31 MEQ/L (21-32); CHLORIDE LEVEL 110 MEQ/L (98-107); GLOMERULAR FILTRATION RATE > 60.0 (>51); GLUCOSE, FASTING 116 MG/DL (70-100); NT-PRO BNP 559 PG/ML (<125); PHOSPHORUS LEVEL 4.9 MG/DL (2.5-4.9); POTASSIUM SERUM 4.3 MEQ/L (3.5-5.1); SODIUM LEVEL 145 MEQ/L (136-145)
== END ==
LOC: M SFHCPLAZ 10:28
PROVIDERS: ATTEND Physician Assistant
DX: I50.31 Acute diastolic (congestive) heart failure (principal)

== ENCOUNTER → 2020-10-11 | Outpatient (REF) | payer OTHER ==
[2020-10-11 18:56] LABS: ALBUMIN 3.7 GM/DL (3.2-5.2); ALT/SGPT 27 U/L (12-78); BILIRUBIN,TOTAL 0.5 MG/DL (0.2-1.0); BLOOD UREA NITROGEN 20 MG/DL (7-18); CALCIUM LEVEL 9.3 MG/DL (8.5-10.1); CARBON DIOXIDE LEVEL 27 MEQ/L (21-32); CHLORIDE LEVEL 109 MEQ/L (98-107); CREATININE FOR GFR 0.69 MG/DL (0.55-1.30); FREE T4 0.97 NG/DL (0.76-1.46); GLOMERULAR FILTRATION RATE > 60.0 (>51); GLUCOSE, FASTING 100 MG/DL (70-100); POTASSIUM SERUM 4.5 MEQ/L (3.5-5.1); SODIUM LEVEL 144 MEQ/L (136-145); TOTAL PROTEIN 6.5 GM/DL (6.4-8.2)
[2020-10-11 19:42] LABS: TOTAL 25(OH) VITAMIN D 49.9 NG/ML (30.0-100.0)
[2020-10-12 14:21] LABS: HEMOGLOBIN A1c 5.6 %
== END ==
LOC: M PLALAB 11:23
PROVIDERS: ATTEND Nurse Practitioner Family
DX: E03.9 Hypothyroidism, unspecified (principal); E11.9 Type 2 diabetes mellitus without complications; E55.9 Vitamin D deficiency, unspecified

== ENCOUNTER → 2020-10-24 | Outpatient (REF) | payer OTHER ==
[2020-10-24 10:42] LABS: BLOOD UREA NITROGEN 25 MG/DL (7-18); CALCIUM LEVEL 9.1 MG/DL (8.5-10.1); CARBON DIOXIDE LEVEL 30 MEQ/L (21-32); CHLORIDE LEVEL 108 MEQ/L (98-107); CREATININE FOR GFR 0.87 MG/DL (0.55-1.30); GLOMERULAR FILTRATION RATE > 60.0 (>51); GLUCOSE, FASTING 119 MG/DL (70-100); POTASSIUM SERUM 4.1 MEQ/L (3.5-5.1); SODIUM LEVEL 143 MEQ/L (136-145)
== END ==
LOC: M PLALAB 08:03
PROVIDERS: ATTEND Nurse Practitioner Family
DX: I50.31 Acute diastolic (congestive) heart failure (principal)

== ENCOUNTER → 2020-12-29 | Outpatient (CLI) | payer OTHER ==
[~2020-12-29] MED LIST changes: +ERGO500029 PO; -VITA50005 PO
[2020-12-29 13:54] LABS: BLOOD UREA NITROGEN 21 MG/DL (7-18); CALCIUM LEVEL 9.2 MG/DL (8.5-10.1); CARBON DIOXIDE LEVEL 27 MEQ/L (21-32); CHLORIDE LEVEL 108 MEQ/L (98-107); CREATININE FOR GFR 0.77 MG/DL (0.55-1.30); FREE T4 0.92 NG/DL (0.76-1.46); GLOMERULAR FILTRATION RATE > 60.0 (>51); GLUCOSE, FASTING 89 MG/DL (70-100); POTASSIUM SERUM 4.2 MEQ/L (3.5-5.1); SODIUM LEVEL 143 MEQ/L (136-145)
== END ==
LOC: M PLALAB 10:25
PROVIDERS: ATTEND Nurse Practitioner Family
DX: E03.9 Hypothyroidism, unspecified (principal); I50.31 Acute diastolic (congestive) heart failure

== ENCOUNTER → 2021-02-16 | Outpatient (CLI) | payer OTHER ==
[2021-02-16 13:38] LABS: HEMATOCRIT 41.8 % (36.0-47.0); MEAN CORPUSCULAR HEMOGLOBIN 27.7 pg (27.0-33.0); MEAN CORPUSCULAR HGB CONC 31.1 g/dl (32.0-36.5); MEAN CORPUSCULAR VOLUME 88.9 fl (80.0-96.0); PLATELET COUNT, AUTOMATED 197 10^3/uL (150-450); WHITE BLOOD COUNT 6.9 10^3/uL (4.0-10.0)
[2021-02-16 14:46] LABS: ALBUMIN 3.2 GM/DL (3.2-5.2); ALT/SGPT 23 U/L (12-78); BILIRUBIN,TOTAL 0.4 MG/DL (0.2-1.0); BLOOD UREA NITROGEN 20 MG/DL (7-18); CALCIUM LEVEL 8.2 MG/DL (8.5-10.1); CARBON DIOXIDE LEVEL 24 MEQ/L (21-32); CHLORIDE LEVEL 112 MEQ/L (98-107); CREATININE FOR GFR 0.79 MG/DL (0.55-1.30); GLOMERULAR FILTRATION RATE > 60.0 (>51); GLUCOSE, FASTING 96 MG/DL (70-100); NT-PRO BNP 411 PG/ML (<125); POTASSIUM SERUM 4.2 MEQ/L (3.5-5.1); SODIUM LEVEL 142 MEQ/L (136-145); TOTAL PROTEIN 6.1 GM/DL (6.4-8.2)
== END ==
LOC: M PLALAB 10:57
PROVIDERS: ATTEND Internal Medicine Cardiovascular Disease
DX: I50.32 Chronic diastolic (congestive) heart failure (principal)

== ENCOUNTER → 2021-02-17 | Outpatient (CLI) | payer OTHER ==
--- NOTE | 2021-02-25 18:55 | SLEEPCENT ---
DATE: 02/17/2021 CPAP RE-TITRATION ORDERED BY: WING Buchanan Nocturnal polysomnography was performed for the re-titration of pressure therapy in this patient with obstructive sleep apnea syndrome, apnea-hypopnea index of 42.2. For testing the patient was fit with a ResMed P30 nasal mask of medium size with a chin strap, 9 cm of water pressure were initially applied to the circuit, and the lights were extinguished. Seven hours and 39 minutes of data were reviewed. There were 267 minutes of sleep identified. Sleep latency was prolonged at 71 minutes. REM sleep was not achieved. Overall sleep architecture showed fragmentation and poor progression. Sleep efficiency was 58.9%. The electrocardiogram showed a sinus rhythm with an average heart rate of 50 beats per minute. EEG showed reasonably normal waveforms for wake and sleep. Respiratory events were fully palliated with CPAP at a pressure of 14. Additional pressure therapy and bilevel therapy did not improve continuity of sleep. There was minimal activity in the limb leads and remaining measures of sleep physiology were normal. IMPRESSIONS: Obstructive sleep apnea syndrome (G47.33). RECOMMENDATION: Nightly use of pressure therapy 14 cm of water. cc: Cecily Scales M.D.
== END ==
LOC: M SLEEP 19:51
PROVIDERS: ATTEND Physician Assistant
DX: G47.33 Obstructive sleep apnea (adult) (pediatric) (principal)

== ENCOUNTER → 2021-03-22 | Outpatient (CLI) | payer OTHER ==
[2021-03-22 11:32] LABS: HEMOGLOBIN A1c 5.4 %
[2021-03-22 12:46] LABS: ALBUMIN 3.3 GM/DL (3.2-5.2); ALT/SGPT 20 U/L (12-78); BILIRUBIN,TOTAL 0.4 MG/DL (0.2-1.0); BLOOD UREA NITROGEN 24 MG/DL (7-18); CALCIUM LEVEL 8.5 MG/DL (8.5-10.1); CARBON DIOXIDE LEVEL 25 MEQ/L (21-32); CHLORIDE LEVEL 111 MEQ/L (98-107); CHOLESTEROL LEVEL 199 MG/DL (<200); CHOLESTEROL RISK RATIO 2.884 (<5); CREATININE FOR GFR 0.77 MG/DL (0.55-1.30); FREE T4 0.95 NG/DL (0.76-1.46); GLOMERULAR FILTRATION RATE > 60.0 (>51); GLUCOSE, FASTING 95 MG/DL (70-100); HDL CHOLESTEROL 69 MG/DL (>40); LDL CHOLESTEROL 119 MG/DL (<100); NON-HDL-C 130 MG/DL; POTASSIUM SERUM 3.8 MEQ/L (3.5-5.1); SODIUM LEVEL 143 MEQ/L (136-145); TRIGLYCERIDES LEVEL 54 MG/DL (<150)
[2021-03-22 12:52] LABS: CREATININE, URINE 15.4 MG/DL; MALB URINE SIEMENS < 5.0 MG/L; MAU/CREAT RATIO 32.4 MCG/MG (0.0-30.0)
== END ==
LOC: M PLALAB 08:37
PROVIDERS: ATTEND Nurse Practitioner Family
DX: E03.9 Hypothyroidism, unspecified (principal); E11.9 Type 2 diabetes mellitus without complications; I10 Essential (primary) hypertension; R80.9 Proteinuria, unspecified; R78.2 Finding of cocaine in blood

== ENCOUNTER → 2021-03-22 | Outpatient (CLI) | payer OTHER ==
[2021-03-22 12:44] LABS: BLOOD UREA NITROGEN 24 MG/DL (7-18); CALCIUM LEVEL 8.5 MG/DL (8.5-10.1); CARBON DIOXIDE LEVEL 26 MEQ/L (21-32); CHLORIDE LEVEL 110 MEQ/L (98-107); CREATININE FOR GFR 0.78 MG/DL (0.55-1.30); GLOMERULAR FILTRATION RATE > 60.0 (>51); GLUCOSE, FASTING 97 MG/DL (70-100); MAGNESIUM LEVEL 2.2 MG/DL (1.8-2.4); NT-PRO BNP 282 PG/ML (<125); POTASSIUM SERUM 3.9 MEQ/L (3.5-5.1); SODIUM LEVEL 143 MEQ/L (136-145)
== END ==
LOC: M PLALAB 08:39
PROVIDERS: ATTEND Internal Medicine Cardiovascular Disease
DX: I50.32 Chronic diastolic (congestive) heart failure (principal)

== ENCOUNTER → 2021-10-01 | Outpatient (CLI) | payer OTHER ==
[2021-10-01 15:44] LABS: BASO % 0.6 % (0.0-1.0); EOS # 0.1 10^3/uL (0.0-0.5); EOS % 1.6 % (0.0-3.0); HEMATOCRIT 39.2 % (36.0-47.0); HEMOGLOBIN 12.6 g/dl (12.0-15.5); LYMPH # 1.1 10^3/uL (1.5-5.0); LYMPH % 15.3 % (24.0-44.0); MEAN CORPUSCULAR HEMOGLOBIN 29.8 pg (27.0-33.0); MEAN CORPUSCULAR HGB CONC 32.1 g/dl (32.0-36.5); MEAN CORPUSCULAR VOLUME 92.7 fl (80.0-96.0); MONO # 0.6 10^3/uL (0.0-0.8); NEUTROPHILS # 5.1 10^3/uL (1.5-8.5); NEUTROPHILS % 74.2 % (36.0-66.0); PLATELET COUNT, AUTOMATED 224 10^3/uL (150-450); RED BLOOD COUNT 4.23 10^6/uL (4.00-5.40); WHITE BLOOD COUNT 6.9 10^3/uL (4.0-10.0)
[2021-10-01 16:10] LABS: HEMOGLOBIN A1c 5.2 %
[2021-10-01 16:11] LABS: ALBUMIN 3.6 GM/DL (3.2-5.2); ALT/SGPT 24 U/L (12-78); BILIRUBIN,TOTAL 0.3 MG/DL (0.2-1.0); BLOOD UREA NITROGEN 23 MG/DL (7-18); CALCIUM LEVEL 8.7 MG/DL (8.5-10.1); CARBON DIOXIDE LEVEL 25 MEQ/L (21-32); CHLORIDE LEVEL 113 MEQ/L (98-107); CREATININE FOR GFR 0.96 MG/DL (0.55-1.30); GLOMERULAR FILTRATION RATE > 60.0 (>51); GLUCOSE, FASTING 95 MG/DL (70-100); NT-PRO BNP 252 PG/ML (<125); POTASSIUM SERUM 4.4 MEQ/L (3.5-5.1); SODIUM LEVEL 142 MEQ/L (136-145); TOTAL PROTEIN 6.3 GM/DL (6.4-8.2)
[2021-10-01 16:14] LABS: TOTAL 25(OH) VITAMIN D 40.4 NG/ML (30.0-100.0)
[2021-10-01 16:15] LABS: PTH INTACT 51.4 PG/ML (18.5-88.0)
[2021-10-01 16:19] LABS: CREATININE, URINE 48.2 MG/DL; MALB URINE SIEMENS 12.6 MG/L; MAU/CREAT RATIO 26.1 MCG/MG (0.0-30.0)
== END ==
LOC: M PLALAB 13:55
PROVIDERS: ATTEND Physician Assistant Medical
DX: E55.9 Vitamin D deficiency, unspecified (principal); E11.9 Type 2 diabetes mellitus without complications; I11.0 Hypertensive heart disease with heart failure; I50.31 Acute diastolic (congestive) heart failure

== ENCOUNTER → 2022-01-07 | Outpatient (CLI) | payer OTHER ==
[~2022-01-07] MED LIST changes: +BUPR-71 PO; -BUPR150T5 PO
== END ==
LOC: M WHC 09:30
PROVIDERS: ATTEND Physician Assistant Medical
DX: Z12.31 Encounter for screening mammogram for malignant neoplasm of breast (principal); Z80.41 Family history of malignant neoplasm of ovary; Z80.42 Family history of malignant neoplasm of prostate

== ENCOUNTER → 2022-04-02 | Outpatient (REF) | payer OTHER ==
[2022-04-02 20:00] LABS: CREATININE, URINE 72.4 MG/DL; MAU/CREAT RATIO 8.2 MCG/MG (0.0-30.0)
== END ==
LOC: M SFHCPLAZ 17:49
PROVIDERS: ATTEND Physician Assistant Medical
DX: E78.2 Mixed hyperlipidemia (principal); E11.9 Type 2 diabetes mellitus without complications; I11.0 Hypertensive heart disease with heart failure; R80.9 Proteinuria, unspecified; I50.31 Acute diastolic (congestive) heart failure

== ENCOUNTER → 2022-05-13 | Outpatient (CLI) | payer OTHER ==
[2022-05-13 15:11] LABS: BASO % 0.6 % (0.0-1.0); EOS # 0.1 10^3/uL (0.0-0.5); EOS % 2.2 % (0.0-3.0); HEMOGLOBIN 11.9 g/dl (12.0-15.5); LYMPH % 15.2 % (24.0-44.0); MEAN CORPUSCULAR HEMOGLOBIN 28.2 pg (27.0-33.0); MEAN CORPUSCULAR HGB CONC 29.8 g/dl (32.0-36.5); MEAN CORPUSCULAR VOLUME 94.8 fl (80.0-96.0); MONO # 0.5 10^3/uL (0.0-0.8); MONO % 8.5 % (2.0-8.0); NEUTROPHILS # 4.6 10^3/uL (1.5-8.5); NEUTROPHILS % 73.2 % (36.0-66.0); PLATELET COUNT, AUTOMATED 233 10^3/uL (150-450); RED BLOOD COUNT 4.22 10^6/uL (4.00-5.40); WHITE BLOOD COUNT 6.3 10^3/uL (4.0-10.0)
[2022-05-13 16:18] LABS: CHOLESTEROL RISK RATIO 2.783 (<5)
[2022-05-13 19:53] LABS: HEMOGLOBIN A1c 5.2 %
== END ==
LOC: M PLALAB 10:49
PROVIDERS: ATTEND Physician Assistant Medical
DX: E11.9 Type 2 diabetes mellitus without complications (principal); I11.0 Hypertensive heart disease with heart failure; I50.31 Acute diastolic (congestive) heart failure; R80.9 Proteinuria, unspecified; E78.2 Mixed hyperlipidemia

== ENCOUNTER → 2022-10-10 | Outpatient (CLI) | payer OTHER ==
[2022-10-10 14:52] LABS: HEMOGLOBIN A1c 5.1 % (4.0-6.0)
== END ==
LOC: M PLALAB 10:47
PROVIDERS: ATTEND Physician Assistant Medical
DX: I10 Essential (primary) hypertension (principal); Z79.899 Other long term (current) drug therapy

== ENCOUNTER → 2022-10-16 | Outpatient (REF) | payer OTHER | LOC: M SFHCPLAZ 12:47 | PROVIDERS: ATTEND Physician Assistant Medical | DX: I10 Essential (primary) hypertension (principal); Z53.8 Procedure and treatment not carried out for other reasons ==

== ENCOUNTER → 2023-02-18 | Outpatient (CLI) | payer OTHER ==
[~2023-02-18] MED LIST changes: +POTA-298 PO; -POTA1TAB14 PO
[2023-02-18 13:54] LABS: BASO % 0.6 % (0.0-1.0); EOS # 0.2 10^3/uL (0.0-0.5); EOS % 2.3 % (0.0-3.0); HEMATOCRIT 39.3 % (36.0-47.0); HEMOGLOBIN 11.8 g/dl (12.0-15.5); LYMPH % 15.3 % (24.0-44.0); MEAN CORPUSCULAR HEMOGLOBIN 28.3 pg (27.0-33.0); MEAN CORPUSCULAR VOLUME 94.2 fl (80.0-96.0); MONO # 0.6 10^3/uL (0.0-0.8); MONO % 9.7 % (2.0-8.0); NEUTROPHILS # 4.7 10^3/uL (1.5-8.5); NEUTROPHILS % 71.8 % (36.0-66.0); PLATELET COUNT, AUTOMATED 234 10^3/uL (150-450); RED BLOOD COUNT 4.17 10^6/uL (4.00-5.40); WHITE BLOOD COUNT 6.5 10^3/uL (4.0-10.0)
[2023-02-18 14:17] LABS: HEMOGLOBIN A1c 4.9 % (4.0-6.0)
[2023-02-18 14:19] LABS: CREATININE, URINE 24.6 MG/DL
[2023-02-18 14:20] LABS: ALBUMIN 3.6 G/DL (3.2-5.2); ALKALINE PHOSPHATASE 70 U/L (46-116); ALT/SGPT 13 U/L (7.0-40); AST/SGOT < 8 U/L (<34); BILIRUBIN,TOTAL 0.3 MG/DL (0.3-1.2); BLOOD UREA NITROGEN 22 MG/DL (9-23); CALCIUM LEVEL 8.9 MG/DL (8.5-10.1); CARBON DIOXIDE LEVEL 22 MMOL/L (20-31); CHLORIDE LEVEL 112 MMOL/L (98-107); CHOLESTEROL LEVEL 171 MG/DL (<200); CHOLESTEROL RISK RATIO 2.62 (<5); GLOMERULAR FILTRATION RATE > 60.0 (>51); GLUCOSE, FASTING 93 MG/DL (60-100); HDL CHOLESTEROL 65.1 MG/DL (>40); LDL CHOLESTEROL 94.1 MG/DL (<100); NON-HDL-C 105.9 MG/DL; POTASSIUM SERUM 4.2 MMOL/L (3.5-5.1); SODIUM LEVEL 146 MMOL/L (136-145); THYROID STIMULATING HORMONE 2.228 uIU/ML (0.55-4.78); TOTAL PROTEIN 6.1 G/DL (5.7-8.2); TRIGLYCERIDES LEVEL 59 MG/DL (<150)
[2023-02-18 14:21] LABS: FREE T4 1.06 NG/DL (0.89-1.76)
[2023-02-18 14:22] LABS: MAU/CREAT RATIO 16.2 MCG/MG (0.0-30.0)
== END ==
LOC: M PLALAB 10:58
PROVIDERS: ATTEND Physician Assistant Medical
DX: E03.9 Hypothyroidism, unspecified (principal); Z68.45 Body mass index [BMI] 70 or greater, adult

== ENCOUNTER → 2023-03-07 | Outpatient (CLI) | payer OTHER | LOC: M WHC 13:39 | PROVIDERS: ATTEND Physician Assistant Medical | DX: Z12.31 Encounter for screening mammogram for malignant neoplasm of breast (principal) ==

== ENCOUNTER → 2023-07-18 | Outpatient (CLI) | payer OTHER ==
[2023-07-18 13:31] LABS: BASO % 0.5 % (0.0-1.0); EOS # 0.1 10^3/uL (0.0-0.5); EOS % 1.9 % (0.0-3.0); HEMATOCRIT 41.4 % (36.0-47.0); HEMOGLOBIN 12.7 g/dl (12.0-15.5); LYMPH % 15.3 % (24.0-44.0); MEAN CORPUSCULAR HEMOGLOBIN 28.2 pg (27.0-33.0); MEAN CORPUSCULAR HGB CONC 30.7 g/dl (32.0-36.5); MEAN CORPUSCULAR VOLUME 91.8 fl (80.0-96.0); MONO # 0.5 10^3/uL (0.0-0.8); MONO % 8.5 % (2.0-8.0); NEUTROPHILS # 4.7 10^3/uL (1.5-8.5); NEUTROPHILS % 73.3 % (36.0-66.0); PLATELET COUNT, AUTOMATED 225 10^3/uL (150-450); RED BLOOD COUNT 4.51 10^6/uL (4.00-5.40); WHITE BLOOD COUNT 6.3 10^3/uL (4.0-10.0)
[2023-07-18 14:02] LABS: FERRITIN 11.7 NG/ML (7.3-270.7)
== END ==
LOC: M PLALAB 10:53
PROVIDERS: ATTEND Physician Assistant Medical
DX: E61.1 Iron deficiency (principal); R19.5 Other fecal abnormalities

== ENCOUNTER → 2023-07-20 | Outpatient (REF) | payer OTHER | LOC: M SFHCPLAZ 13:27 | PROVIDERS: ATTEND Physician Assistant Medical | DX: R19.5 Other fecal abnormalities (principal) ==

== ENCOUNTER → 2023-10-28 | Outpatient (CLI) | payer OTHER ==
[2023-10-28 15:52] LABS: ALBUMIN 3.4 G/DL (3.2-5.2); BILIRUBIN,TOTAL 0.4 MG/DL (0.3-1.2); CALCIUM LEVEL 9.4 MG/DL (8.5-10.1); CREATININE FOR GFR 1.1 MG/DL (0.55-1.30); GLOMERULAR FILTRATION RATE 55.3 (>51); POTASSIUM SERUM 4.5 MMOL/L (3.5-5.1); TOTAL PROTEIN 6.2 G/DL (5.7-8.2)
[2023-10-28 15:59] LABS: HEMOGLOBIN A1c 5.1 % (4.0-6.0)
== END ==
LOC: M PLALAB 12:17
PROVIDERS: ATTEND Physician Assistant Medical
DX: I10 Essential (primary) hypertension (principal); E11.9 Type 2 diabetes mellitus without complications

== ENCOUNTER → 2023-11-26 | Outpatient (CLI) | payer OTHER ==
[2023-11-26 15:24] LABS: BASO % 0.4 % (0.0-1.0); EOS # 0.2 10^3/uL (0.0-0.5); EOS % 2.4 % (0.0-3.0); HEMOGLOBIN 12.6 g/dl (12.0-15.5); LYMPH # 1.2 10^3/uL (1.5-5.0); LYMPH % 17.6 % (24.0-44.0); MEAN CORPUSCULAR HEMOGLOBIN 29.4 pg (27.0-33.0); MEAN CORPUSCULAR HGB CONC 31.5 g/dl (32.0-36.5); MEAN CORPUSCULAR VOLUME 93.2 fl (80.0-96.0); MONO # 0.6 10^3/uL (0.0-0.8); MONO % 8.8 % (2.0-8.0); NEUTROPHILS % 70.7 % (36.0-66.0); PLATELET COUNT, AUTOMATED 215 10^3/uL (150-450); RED BLOOD COUNT 4.29 10^6/uL (4.00-5.40)
[2023-11-26 15:45] LABS: FERRITIN 13.2 NG/ML (7.3-270.7)
== END ==
LOC: M PLALAB 11:49
PROVIDERS: ATTEND Physician Assistant Medical
DX: R71.0 Precipitous drop in hematocrit (principal)

== ENCOUNTER → 2024-05-03 | Outpatient (CLI) | payer OTHER ==
[2024-05-03 13:44] LABS: BASO % 0.5 % (0.0-1.0); EOS # 0.1 10^3/uL (0.0-0.5); EOS % 1.9 % (0.0-3.0); HEMATOCRIT 38.7 % (36.0-47.0); LYMPH # 1.1 10^3/uL (1.5-5.0); LYMPH % 17.7 % (24.0-44.0); MEAN CORPUSCULAR HEMOGLOBIN 29.5 pg (27.0-33.0); MEAN CORPUSCULAR VOLUME 95.1 fl (80.0-96.0); MONO # 0.6 10^3/uL (0.0-0.8); MONO % 8.9 % (2.0-8.0); NEUTROPHILS # 4.4 10^3/uL (1.5-8.5); NEUTROPHILS % 70.8 % (36.0-66.0); PLATELET COUNT, AUTOMATED 211 10^3/uL (150-450); RED BLOOD COUNT 4.07 10^6/uL (4.00-5.40); WHITE BLOOD COUNT 6.2 10^3/uL (4.0-10.0)
[2024-05-03 14:08] LABS: CREATININE, URINE 48.9 MG/DL; HEMOGLOBIN A1c 5.1 % (4.0-6.0); MALB URINE SIEMENS < 3.0 MG/L; MAU/CREAT RATIO 6.1 MCG/MG (0.0-30.0)
[2024-05-03 14:14] LABS: FERRITIN 20.6 NG/ML (7.3-270.7)
[2024-05-03 14:15] LABS: FREE T4 1.17 NG/DL (0.89-1.76); THYROID STIMULATING HORMONE 1.696 uIU/ML (0.55-4.78)
== END ==
LOC: M PLALAB 10:41
PROVIDERS: ATTEND Physician Assistant Medical
DX: E55.9 Vitamin D deficiency, unspecified (principal); R71.0 Precipitous drop in hematocrit; E03.9 Hypothyroidism, unspecified; I50.31 Acute diastolic (congestive) heart failure; R80.9 Proteinuria, unspecified

== ENCOUNTER → 2024-05-13 | Outpatient (CLI) | payer OTHER | LOC: M WHC 10:25 | PROVIDERS: ATTEND Physician Assistant Medical | DX: Z12.31 Encounter for screening mammogram for malignant neoplasm of breast (principal) ==

== ENCOUNTER → 2024-09-13 | Outpatient (CLI) | payer OTHER ==
[2024-09-13 13:20] LABS: BASO % 0.6 % (0.0-1.0); EOS # 0.1 10^3/uL (0.0-0.5); EOS % 1.4 % (0.0-3.0); HEMATOCRIT 44.1 % (36.0-47.0); HEMOGLOBIN 13.7 g/dl (12.0-15.5); LYMPH # 1.5 10^3/uL (1.5-5.0); LYMPH % 20.2 % (24.0-44.0); MEAN CORPUSCULAR HEMOGLOBIN 29.2 pg (27.0-33.0); MEAN CORPUSCULAR HGB CONC 31.1 g/dl (32.0-36.5); MONO # 0.7 10^3/uL (0.0-0.8); MONO % 9.9 % (2.0-8.0); NEUTROPHILS # 4.9 10^3/uL (1.5-8.5); NEUTROPHILS % 67.5 % (36.0-66.0); PLATELET COUNT, AUTOMATED 243 10^3/uL (150-450); RED BLOOD COUNT 4.69 10^6/uL (4.00-5.40); WHITE BLOOD COUNT 7.2 10^3/uL (4.0-10.0)
[2024-09-13 13:39] LABS: HEMOGLOBIN A1c 4.6 % (4.0-6.0)
[2024-09-13 13:50] LABS: ALBUMIN 3.7 G/DL (3.2-5.2); BILIRUBIN,TOTAL 0.4 MG/DL (0.3-1.2); CALCIUM LEVEL 9.4 MG/DL (8.5-10.1); CREATININE FOR GFR 1.15 MG/DL (0.55-1.30); GLOMERULAR FILTRATION RATE 52.3 (>51); POTASSIUM SERUM 4.1 MMOL/L (3.5-5.1); PTH INTACT 48.7 PG/ML (18.5-88.0); TOTAL PROTEIN 6.6 G/DL (5.7-8.2)
[2024-09-13 13:52] LABS: TOTAL 25(OH) VITAMIN D 47.6 NG/ML (20.0-100.0)
== END ==
LOC: M PLALAB 11:31
PROVIDERS: ATTEND Physician Assistant Medical
DX: I10 Essential (primary) hypertension (principal); E78.2 Mixed hyperlipidemia; R71.0 Precipitous drop in hematocrit; E55.9 Vitamin D deficiency, unspecified; E11.9 Type 2 diabetes mellitus without complications

== ENCOUNTER → 2025-01-10 | Outpatient (CLI) | payer OTHER ==
[~2025-01-10] MED LIST changes: -PRAV40TA2 PO; +PRAV40TA85 PO
[2025-01-10 14:14] LABS: ESTIMATED AVERAGE GLUCOSE 91.0 MG/DL (60-110)
[2025-01-10 14:31] LABS: FREE T4 1.0 NG/DL (0.89-1.76); TOTAL 25(OH) VITAMIN D 51.3 NG/ML (20.0-100.0)
[2025-01-10 14:32] LABS: ALT/SGPT 17.0 U/L (7.0-40); AST/SGOT 13.0 U/L (<34); CALCIUM LEVEL 8.4 MG/DL (8.5-10.1); CARBON DIOXIDE LEVEL 23.0 MMOL/L (20-31); CHLORIDE LEVEL 111.0 MMOL/L (98-107); CHOLESTEROL LEVEL 170.0 MG/DL (<200); CHOLESTEROL RISK RATIO 2.98 (<5); CPK CREATINE PHOSPHOKINASE 49.0 U/L (34-145); CREATININE FOR GFR 1.31 MG/DL (0.55-1.30); GLOMERULAR FILTRATION RATE 48.4 (>51); LDL CHOLESTEROL 94.3 MG/DL (<100); NON-HDL-C 113.1 MG/DL; POTASSIUM SERUM 3.8 MMOL/L (3.5-5.1); PTH INTACT 64.7 PG/ML (18.5-88.0); SODIUM LEVEL 145.0 MMOL/L (136-145); TRIGLYCERIDES LEVEL 94.0 MG/DL (<150)
== END ==
LOC: M PLALAB 10:51
PROVIDERS: ATTEND Physician Assistant Medical
DX: E78.2 Mixed hyperlipidemia (principal); I50.31 Acute diastolic (congestive) heart failure; I11.0 Hypertensive heart disease with heart failure; F32.9 Major depressive disorder, single episode, unspecified; E03.9 Hypothyroidism, unspecified; E55.9 Vitamin D deficiency, unspecified

== ENCOUNTER → 2025-04-20 | Outpatient (CLI) | payer OTHER ==
[2025-04-20 13:43] LABS: BASO # 0.0 10^3/uL (0.0-0.2); BASO % 0.7 % (0.0-1.0); EOS # 0.1 10^3/uL (0.0-0.5); EOS % 2.2 % (0.0-3.0); LYMPH # 1.2 10^3/uL (1.5-5.0); LYMPH % 20.4 % (24.0-44.0); MONO # 0.6 10^3/uL (0.0-0.8); MONO % 10.4 % (2.0-8.0); NEUTROPHILS # 4.0 10^3/uL (1.5-8.5); NEUTROPHILS % 66.0 % (36.0-66.0); PLATELET COUNT, AUTOMATED 231 10^3/uL (150-450)
[2025-04-20 15:50] LABS: CREATININE, URINE 22.0 MG/DL
[2025-04-20 15:51] LABS: MALB URINE SIEMENS < 3.0 MG/L
[2025-04-20 17:50] LABS: ESTIMATED AVERAGE GLUCOSE 103.0 MG/DL (60-110)
== END ==
LOC: M PLALAB 10:56
PROVIDERS: ATTEND Physician Assistant Medical
DX: R80.9 Proteinuria, unspecified (principal); I10 Essential (primary) hypertension; E11.9 Type 2 diabetes mellitus without complications; R71.0 Precipitous drop in hematocrit